=== PATIENT | female | born 1945 | race Caucasian/White ===

== ENCOUNTER 2022-06-10 15:54 | Emergency (ER) | payer MEDICARE, BC, SELFPAY ==
[2022-06-10 15:56] VITALS: BP 110/74; PULSE 90; RESP 18; TEMP 36.7; O2SAT 97; BMI 30.9
--- NOTE | 2022-06-10 16:44 | CRLHL7_ITS ---
For Patients: As a result of the Century Cures Act, medical imaging exams and procedure reports are released immediately into your electronic medical record. You may view this report before your referring provider. If you have questions, please contact your health care provider. INDICATION: Headache. Vomiting. TECHNIQUE: Noncontrast CT images acquired through the brain. COMPARISON: CT brain 07/14/2020. FINDINGS: Motion artifact degrades image quality near the skullbase. Prominence of the ventricles and sulci compatible with mild diffuse cerebral volume loss. No mass effect or midline shift. The cabello-white differentiation is maintained. No acute intracranial hemorrhage or pathologic extra-axial fluid collection. 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 Mild hypoattenuation within the subcortical white matter of the posterior right parietal and right occipital lobes has improved compared to the prior CT. Scattered hypoattenuation in the supratentorial white matter, suggestive of mild chronic microvascular ischemic changes. Intracranial atherosclerotic calcifications. Thinning of the ocular lenses. The calvarium is intact. Mqhy-gi-[id number] maxillary sinus mucosal thickening. Mild mucosal thickening ethmoid air cells. The mastoid air cells are clear. IMPRESSION: 1. No acute intracranial hemorrhage or mass effect. 2. Mild hypoattenuation within the subcortical white matter of the posterior right parietal and right occipital lobes has improved compared to the prior CT. 3. 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 Please note that all CT scans at this facility use dose modulation, iterative reconstruction, and/or weight-based dosing when appropriate to reduce radiation dose to as low as reasonably achievable. Dictated by Jose Dia MD @ 06/10/2022 5:52:47 PM (Electronically Signed)
--- NOTE | 2022-06-10 16:46 | ED.HA ---
HPI - Headache General Chief Complaint: Headache/Migraine Stated Complaint: Headache, Vomiting once an hour Time Seen by Provider: 06/10/22 16:00 History of Present Illness HPI Narrative: This 77-year-old female comes in reporting headache that she awoke with this morning beginning at about 6:00 a.m.. She has had vomiting about every hour since then also. She states that she does not typically get headaches but occasionally does. She states that this is the worst headache she has had. She does not report any neurologic deficits. She does not have any visual changes or light sensitivity. She does not report any symptoms of fever or infection. She does have some diffuse pain in her neck but not extending down her back. Related Data Home Medications Medication Instructions Recorded Confirmed hydroxychloroquine 200 mg tablet 200 mg PO BID 06/10/22 06/10/22 methotrexate sodium 2.5 mg tablet 2.5 mg PO DAILY 06/10/22 06/10/22 sulfasalazine 500 mg tablet 500 mg PO Q12H 06/10/22 06/10/22 Previous Rx's Medication Instructions Recorded sertraline 100 mg tablet 100 mg PO QDAY #14 tabs 05/20/22 ketorolac 10 mg tablet 10 mg PO TID 5 days #15 tabs 06/10/22 ondansetron 4 mg disintegrating 4 mg PO Q6H #10 tabs 06/10/22 tablet Allergies Allergy/AdvReac Type Severity Reaction Status Date / Time No Known Drug Allergies Allergy Verified 06/10/22 16:02 Review of Systems Status of ROS: Reports: 10 or more systems reviewed and unremarkable except as noted in History and below Narrative: Constitutional: No fevers, no weight gain or loss. Eyes: No discharge. No vision changes. HENT: No congestion, no sore throat, no ear pain. Cardiovascular: No chest pain, no palpitations. Respiratory: No shortness of breath, no wheezes, no cough. Gastrointestinal: No abdominal pain, no vomiting, no diarrhea. Genitourinary: No dysuria, no hematuria. Musculoskeletal: Normal range of motion. Skin: No rashes, no pruritis. Neurological: No dizziness, weakness, sensory change, speech change. Endo/Heme/Allergies: No bruising or bleeding. No polydipsia. Pysch: no suicidality, no anxiety, no insomnia. All other systems reviewed and are negative. PFSH PFSH Medical History (Updated 06/10/22 @ 18:52 by Alfonzo Pompa MD) Hypertension Social History Smoking Status: Never smoker Do you use any of these nicotine containing products: None How often do you have a drink containing alcohol: never How often do you have six or more drinks on one occasion: Never AUDIT-C Alcohol total score: 0 service: No Exam Narrative: Exam Narrative: Constitutional: Well-developed, well-nourished, no acute distress. HEENT: Normocephalic, atraumatic. Neck: Normal range of motion. Nontender. Supple. Heart: Regular. No murmurs. Normal rate. Intact distal pulses. Lungs: Clear to auscultation. No chest discomfort. No wheezes, rhonchi, or rales. Abdomen: Normal bowel sounds. Nontender. No rebound tenderness. Genitalia: Deferred. Back: No midline tenderness. Normal range of motion. Extremities: Normal range of motion. No injury. Skin: Intact. No rash. Warm. No erythema or pallor. Neurologic: No altered sensation. No weakness. Alert and oriented. No facial asymmetry. Tongue is midline. [id number] is normal. No pronator drift. [employer] [place] strength is equal bilaterally. Psychiatric: No suicidality. No anxiety or depression. No insomnia. Nursing notes and vitals signs are reviewed. Const: Vital Signs, click to edit/add: Vital Signs - 24 hr 06/10/22 15:56 06/10/22 18:21 Temperature 98.0 F Pulse Rate [Right Pulse Oximeter] 90 68 Respiratory Rate 18 18 Blood Pressure [Ri ght Upper Arm] 110/74 130/74 Pulse Oximetry 97 97 Oxygen Delivery Me thod Room Air Room Air Course Vital Signs Vital signs: Initial Vital Signs Temperature 98.0 F 06/10/22 15:56 Temperature Source Temporal Artery Scan 06/10/22 15:56 Pulse Rate 90 06/10/22 15:56 Respiratory Rate 18 06/10/22 15:56 Blood Pressure 110/74 06/10/22 15:56 Blood Pressure Mean 86 06/10/22 15:56 Blood Pressure Position Sitting 06/10/22 15:56 Pulse Oximetry 97 06/10/22 15:56 Oxygen Delivery Method 06/10/22 15:56 Vital Signs Temperature 98.0 F 06/10/22 15:56 Pulse Rate 90 06/10/22 15:56 Respiratory Rate 18 06/10/22 15:56 Blood Pressure 110/74 06/10/22 15:56 Pulse Oximetry 97 06/10/22 15:56 Oxygen Delivery Method 06/10/22 15:56 Temperature 98.0 F 06/10/22 15:56 Pulse Rate 68 06/10/22 18:21 Respiratory Rate 18 06/10/22 18:21 Blood Pressure 130/74 06/10/22 18:21 Pulse Oximetry 97 06/10/22 18:21 Oxygen Delivery Method 06/10/22 18:21 MDM - Headache MDM Narrative Medical decision making narrative: This patient comes in with headache and repeated vomiting. Given her age and the severity of her headache with vomiting I did do a CT scan which returns with no acute findings. Lab results also returned with reassuring findings. An IV was established where she received medications to treat her symptoms including Zofran 4 mg, Dilaudid 0.2 mg, and Toradol 15 mg. This brought sufficient relief to her symptoms. She maintains normal vital signs and neurologic function. She is okay to go home and is provided prescriptions for Toradol, Zofran, and [place]. Lab Data Labs: Lab Results 06/10/22 06/10/22 Range/Units 17:10 17:10 WBC 6.35 (4.50-11.00) K/uL RBC 3.79 L (4.00-5.20) m/uL Hgb 12.6 (12.0-16.0) gm/dL Hct 38.1 (33.0-51.0) % MCV 101 H (80-100) fL MCH 33 (26-34) pg MCHC 33 (32-36) gm/dL RDW Coeff of Nicole 11.9 (11.5-15.5) % Plt Count 310 (140-440) K/uL Neut % (Auto) 80.6 H (42.0-72.0) % Lymph % (Auto) 15.0 L (20-44) % [place] % (Auto) 3.9 (0.0-11.0) % Eos % (Auto) 0.0 (0.0-7.0) % Baso % (Auto) 0.3 (0.0-3.0) % Neut # (Auto) 5.10 (1.7-7.0) K/uL Lymph # (Auto) 1.00 (0.90-2.90) K/uL [place] # (Auto) 0.20 (0.00-0.90) K/UL Eos # (Auto) 0.00 (0.00-0.50) K/uL Baso # (Auto) 0.02 (0.00-0.30) K/uL Sodium 132 L (135-149) mmol/L Potassium 3.8 (3.6-5.1) mmol/L Chloride 98 (96-114) mmol/L Carbon Dioxide 25 (20-32) mmol/L BUN 13 (7-30) mg/dL Creatinine 0.4 L (0.5-1.5) mg/dL Estimated Creat Clear 46.54 Estimated GFR 103 ml/min Glucose 123 H (60-115) mg/dL Calcium 9.4 (8.4-10.6) mg/dL Imaging Data CT scan - head: Radiologist's impression: 1. No acute intracranial hemorrhage or mass effect. 2. Mild hypoattenuation within the subcortical white matter of the posterior right parietal and right occipital lobes has improved compared to the prior CT. 3. 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 Discharge Plan Discharge Clinical Impression: Migraine Patient Disposition: Home w/ Parent or Adult Condition: Stable Additional Instructions: Take medication as needed and indicated. Follow up with MD or return if worsening. Prescriptions: New ketorolac 10 mg tablet 10 mg PO TID 5 Days Qty: 15 0RF ondansetron 4 mg tablet,disintegrating 4 mg PO Q6H Qty: 10 0RF No Action methotrexate sodium 2.5 mg tablet 2.5 mg PO DAILY hydroxychloroquine 200 mg tablet 200 mg PO BID sulfasalazine 500 mg tablet 500 mg PO Q12H sertraline 100 mg tablet 100 mg PO QDAY Qty: 14 0RF Follow Up/Referrals: Peggy Styles MD [Primary Care Provider] - Stand Alone Forms: [employer] Info Instructions
[2022-06-10] MEDS: HYDROmorphone 0.5 mg/0.5 ml inj 0.2 MG IVP ×2 (17:10→18:12)
[2022-06-10 17:31] LABS: Basophils Absolute Auto 0.02 K/uL (0.00-0.30); Basophils Percent Auto 0.3 % (0.0-3.0); Hematocrit 38.1 % (33.0-51.0); Hemoglobin* 12.6 gm/dL (12.0-16.0); Immature Granulocytes Abs Auto 0.01 K/uL (0.00-0.30); Immature Granulocytes Pct Auto 0.2 %; Mean Corpuscular HGB Conc 33 gm/dL (32-36); Mean Corpuscular Hemoglobin 33 pg (26-34); Mean Corpuscular Volume 101 fL (80-100); Monocytes Percent Auto 3.9 % (0.0-11.0); Neutrophils Percent Auto 80.6 % (42.0-72.0); Platelet Count* 310 K/uL (140-440); RDW Coefficient of Variation % 11.9 % (11.5-15.5); Red Blood Count 3.79 m/uL (4.00-5.20); White Blood Count* 6.35 K/uL (4.50-11.00)
[2022-06-10 17:33] LABS: Chloride* 98 mmol/L (96-114); Potassium* 3.8 mmol/L (3.6-5.1); Sodium* 132 mmol/L (135-149)
[2022-06-10 17:35] LABS: Creatinine* 0.4 mg/dL (0.5-1.5); Est. Creatinine Clearance* 46.54; Estimated Glomerular Filt Rate 103 ml/min
[2022-06-10 17:36] LABS: Blood Urea Nitrogen* 13 mg/dL (7-30); Calcium* 9.4 mg/dL (8.4-10.6); Carbon Dioxide* 25 mmol/L (20-32); Glucose* 123 mg/dL (60-115); Slide Review Reflex No
[2022-06-10] MEDS: ONDANSETRON 2 MG/ML inj 4 MG IVP (18:11)
[2022-06-10] MEDS: diphenhydrAMINE 50 MG/ML inj 25 MG IVP (18:12)
[2022-06-10 18:21] VITALS: BP 130/74; PULSE 68; RESP 18; O2SAT 97
== END 2022-06-10 19:10 | disposition home or self-care (01) ==
PROVIDERS: Emergency Provider Emergency Medicine Emergency Medical Services; PCP Internal Medicine
DX: G43.909 Migraine, unspecified, not intractable, without status migrainosus (principal)
CPT/HCPCS: 36415; 70450; 80048; 85025; 96374; 96375; 96376; 99284; J1170; J1200; J2405

== ENCOUNTER 2022-06-23 15:11 | Outpatient (CLI) | payer MEDICARE, BC, SELFPAY ==
--- NOTE | 2022-06-23 15:30 | CRLHL7_ITS ---
For Patients: As a result of the Century Cures Act, medical imaging exams and procedure reports are released immediately into your electronic medical record. You may view this report before your referring provider. If you have questions, please contact your health care provider. Indication: Headaches, follow-up pituitary macroadenoma Technique: High-resolution sagittal and coronal, pre and postcontrast T1 weighted sequences through the pituitary gland, axial diffusion, T2 FLAIR sequences are provided. Fifteen gadolinium based IV contrast was administered. Comparison: CT head 06/10/2022, MRI brain 07/14/2021 Findings: The ventricles and cortical sulci are mildly prominent. No midline shift, hydrocephalus, herniation. No suspicious restricted diffusion, acute intracranial hemorrhage, or abnormal extra-axial fluid collection. Small areas of encephalomalacia and gliosis are noted at the left frontal and right parietal convexities. There are numerous scattered foci of FLAIR hyperintensity throughout the supratentorial white matter and ronda, along with extensive chronic microhemorrhage throughout the bilateral cerebral hemispheres. Redemonstration of a hypoenhancing lesion within the right aspect of the sella. In the coronal plane, this measures approximately 1.4 x 1.0 cm CC by TR (series 14 image 10), and approximately 1.4 cm AP in the axial plane (series 16 image 14). Differences in size relative to the prior exams is favored secondary to dedicated pituitary technique on today`s imaging, and this lesion is favored stable over the interval. Again noted is right lateral extension of this lesion to the level of the intercarotid line, suspicious for possible cavernous sinus invasion. No mass effect on the optic chiasm. The major intracranial flow voids are preserved. Mild maxillary and ethmoid sinus mucosal thickening. Trace right mastoid effusion. Bilateral lens implants. Impression: 1. Allowing for differences in technique, similar size/configuration of the 1.4 cm hypoenhancing lesion expanding the right aspect of the sella, most consistent with pituitary macroadenoma. Again noted is possible invasion of the right cavernous sinus. No mass effect on the optic chiasm. 2. No acute intracranial abnormality. Generalized cerebral volume loss, mild chronic microangiopathy white-matter changes, and sequela of cerebral amyloid angiopathy including innumerable cerebral chronic microhemorrhages. Dictated by Alicia Mackenzie MD @ 06/24/2022 10:41:05 AM (Electronically Signed)
== END 2022-06-23 15:12 | disposition home or self-care (01) ==
LOC: MRI 15:15
PROVIDERS: PCP Internal Medicine; Visit Provider Internal Medicine Endocrinology, Diabetes & Metabolism
DX: R51.9 Headache, unspecified (principal); E23.7 Disorder of pituitary gland, unspecified
CPT/HCPCS: 70553; A9575

== ENCOUNTER 2023-07-19 09:24 | Outpatient (CLI) | payer MEDICARE, BC, SELFPAY ==
--- OUTSIDE RECORDS SUMMARY | 2023-07-19 11:44 | XMS_ITS | Clinical Summary ---
Author Name Unknown Organization [facility] Address [place], [place] [address] Care Team Providers Care Muffler Tender Name Role Phone Peggy Styles MD Primary Care Provider [phone] Allergies Active Allergy Reactions Criticality Noted Date Comments Pollen Extracts Runny Nose 10/22/2014 Trees,cats Medications Medication Sig Dispensed Refills Start Date End Date Status ALBUTEROL SULFATE HFA 90 MCG/ACTUATION AEROSOL INHALERIndications:Br onchitis, not specified as acute or chronic,Acute bronchospasm inhale 1-2 puffs by inhalation route every 4-6 hours as needed 1 0 10/22/2007 Active SERTRALINE 100 MG TAB take 1/2 tablet daily 45 0 06/20/2008 Active METHOTREXATE SODIUM (METHOTREXATE, ANTI-RHEUMATIC, ORAL) Take by mouth. 0 Active hydroxychloroquine (PLAQUENIL) 200 mg tablet Take 200 mg by mouth 2 times daily. 0 Active predniSONE (DELTASONE) 5 mg tablet Take 5 mg by mouth once daily with a meal. 0 Active Cholecalciferol, Vitamin D3, (VITAMIN D-3) 2,000 unit tablet Take 2,000 Units by mouth once daily. 0 Active MULTIVITAMIN ORAL Take by mouth. 0 Act reji sulfaSALAzine (AZULFIDINE) 500 mg tablet 0 11/19/2021 Active CPAPIndications:ISA on CPAP CPAP machine for home use at pressure 11.6 cmw, full face mask x1/3month with a full face cushion x1/mo 1 Each 11 12/22/2021 Active cabergoline (DOSTINEX) 0.5 mg tablet 0 11/14/2021 Active Active Problems Problem Noted Date Diagnosed Date Rheumatoid arthritis 12/22/2021 Adenomatous colon polyp 01/01/2017 Overview: Colonoscopy 12/2016 polyp repeat in 5 years ISA 04/16/2006 AHI-45 10/12/2016 Dysthymic disorder 04/18/2007 Allergic rhinitis, cause unspecified 04/18/2007 Other and unspecified ovarian cyst 04/18/2007 Social History Tobacco Use Types Packs/Day Years Used Date Smoking Tobacco: Never Smokeless Tobacco: Never Tobacco Cessation:Counseling Given: Yes Comments:never Alcohol Use Standard Drinks/Week Comments No 0 (1 standard drink = 0.6 oz pur e alcohol) Social Connections Answer Date Recorded Frequency of Communication with Friends and Fami ly Not on file 12/22/2021 Sex and Gender Information Value Date Recorded Sex Assigned at Not on file Gender Identity Not on file Sexual Orientation Not on file Obstetrics History Last Filed Vital Signs Vital Sign Reading Time Taken Comments Blood Pressure 119/58 02/18/2022 8:04 AM CDT Pulse 90 02/18/2022 8:04 AM CDT Temperature 36.8 ??C (98.3 ??F) 08/28/2017 9:13 AM CD T Respiratory Rate 16 02/08/2015 11:52 AM CDT Oxygen Saturation 96% 02/18/2022 8:04 AM CDT Inhaled Oxygen Concentration - - Weight 92.3 kg (203 lb 6.4 oz) 02/18/2022 8:04 A M CDT Height 172.7 cm (5' 8) 10/24/2014 9:05 AM CDT Body Mass Index 30.93 10/24/2014 9:05 AM CDT Plan of Treatment Health Maintenance Due Date Last Done Comments Tdap 1957 Depression screening for age 12+ 1958 BMI (ht and wt on same day) for age 18+ 01/06/1964 Hepatitis C screening for age 18-79 01/06/1964 Tetanus booster 1966 Zoster (shingles) series for age 50+ (1 of 2) 01/06/1996 DEXA/DXA scan for age 65+ 2011 Medicare Wellness for age 65+ 2011 Pneumococcal series for age 65+ (1 of 1 - PCV) 2011 COVID-19 vaccine series ( season) 2023 06/24/2021, 08/24/2020, 08/03/2020 Influenza for age 65+ 02/05/2023 Medical Devices Implanted Type Area Group President Device Identifier Shelf Expiration Date Model / Serial / Lot Plate Low Profile Mtp Lt Sht Contoured Titnm - [id number] Implanted:Qty: 1 on 10/24/2014 by Bill Chan DPM at [facility] Left: Foot [employer] [id number] L-P # / / Description:Load #1 6 2014-20 - [id number] Implanted:Qty: 1 on 10/24/2014 by Bill Chan DPM at [facility] Left: Foot [employer] AR-8933- 20 / / Description:3mm low profile screw titanium cortical 20mm #[id number] load#1 6 10/23/2014 Screw Joselito Low Profile 3.0x18mm Titnm - [id number] Implanted:Qty: 1 on 10/24/2014 at [facility] [employer] AR-8933-18# / / [id number] - [id number] Implanted:Qty: 2 on 10/24/2014 by Bill Chan DPM at [facility] Left: Foot [employer] AR-8933V -12 / / Description:3.0mm libertad screws titanium arthrex #[id number] load 1 6 10/23/2014AugJbp-8105z-52 - [id number] Implanted:Qty: 1 on 10/24/2014 by Bill Chan DPM at [facility] Left: Foot [employer] AR-8933V -18 / / Description:3.0 mm libertad screw s titanium 18mm #[id number] load #1 6 10/23/2014AugByp-2198n-26 - [id number] Implanted:Qty: 1 on 10/24/2014 by Bill Chan DPM at [facility] Left: Foot [employer] AR-8933V -20 / / Description:3.0mmval screw # [id number] Load#1 6 10/23/2014 Screw Joselito Low Profile 3.0x16mm Titnm - [id number] Implanted:Qty: 1 on 10/24/2014 by Bill Chan DPM at [facility] Left: Foot [employer] AR-8933- 16# / / Description:Load # 1 6 10/23 Advance Directives Latest Code Status on File Code Status Date Activated Date Inactivated Comments Full Code 10/22/2014 12:49 PM 10/24/2014 5:33 PM Care Teams Muffler Tender Relationship Specialty Start Date End Date Peggy Styles MD [address] [place] [address] PCP - General Internal Medicine 10/23/14
--- OUTSIDE RECORDS SUMMARY | 2023-07-19 11:44 | XMS_ITS | Continuity of Care Document ---
Author Name Unknown Organization [facility] Address [address] [place] [address] Phone Care Team Providers Care Pit Steward Name Role Phone Aaron Ballard MD Unavailable Unavailable Allergies, Adverse Reactions, Alerts Substance Reaction Status Criticality No Known Allergies Active No Inform ation Medications Medication Instructions Dosage Effective Dates (start - stop) Status Comments HYDROXYCHLOROQUINE SULFATE 200 TABS TAKE ONE TABLET BY MOUTH TWICE A DAY - Active SULFASALAZINE 500MG TABS TAKE TWO TABLET S (1,000 MG TOTAL) BY MOUTH TWICE A DAY AFTER MEALS 1000 MG - Active METHOTREXATE 2.5MG TABS TAKE 10 TABLETS (25 MG TOTAL) BY MOUTH ONCE EVERY WEEK 25 MG - Active folic acid 1 mg tablet take 1 tablet by oral route every morning 1 MG - Active Remicade 100 mg intravenous solution infuse - Active cabergoline 0.5 mg tablet take 0.5 Tablet by oral route 2 times every week 0.25 MG - Active Vitamin D3 2,000 unit tablet take 2 Tablet by Oral route every day 2 Tablet - Active Zoloft 50 mg Tab take 1 tablet (50MG) by oral route every day 50 MG - Active HYDROXYCHLOROQUINE SULFATE 200 TABS TAKE ONE TABLET BY MOUTH TWICE A DAY - No Longer Active Procedures Procedure Date Remicade Infliximab Chemo, Iv Infusion, 1 Hr Chemo, Iv Infusion, Addl Hr Normal Saline Solution Infus Remicade Infliximab Chemo, Iv Infusion, 1 Hr Chemo, Iv Infusion, Addl Hr Normal Saline Solution Infus Office/Outpatient Visit, Est Routine Venipuncture Specimen Handling Rbc Sed Rate, Automated Assay Of Serum Albumin Assay Of Creatinine Transferase (Ast) (Sgot) Alanine Amino (Alt) (Sgpt) CReactive Protein Tb Test, Cell Immun Measure Complete Cbc WAuto Diff Wbc Remicade Infliximab Chemo, Iv Infusion, 1 Hr Chemo, Iv Infusion, Addl Hr Normal Saline Solution Infus Remicade Infliximab Chemo, Iv Infusion, 1 Hr Chemo, Iv Infusion, Addl Hr Normal Saline Solution Infus Office/Outpatient Visit, Est Routine Venipuncture Rbc Sed Rate, Automated Assay Of Serum Albumin Assay Of Creatinine Transferase (Ast) (Sgot) Alanine Amino (Alt) (Sgpt) CReactive Protein Complete Cbc WAuto Diff Wbc Remicade Infliximab Chemo, Iv Infusion, 1 Hr Chemo, Iv Infusion, Addl Hr Normal Saline Solution Infus Remicade Infliximab Chemo, Iv Infusion, 1 Hr Chemo, Iv Infusion, Addl Hr Normal Saline Solution Infus Office/Outpatient Visit, Est Routine Venipuncture Rbc Sed Rate, Nonautomated Assay Of Serum Albumin Assay Of Creatinine Transferase (Ast) (Sgot) Alanine Amino (Alt) (Sgpt) CReactive Protein Complete Cbc WAuto Diff Wbc Remicade Infliximab Chemo, Iv Infusion, 1 Hr Chemo, Iv Infusion, Addl Hr Normal Saline Solution Infus Remicade Infliximab Chemo, Iv Infusion, 1 Hr Chemo, Iv Infusion, Addl Hr Normal Saline Solution Infus Office/Outpatient Visit, Est Routine Venipuncture Rbc Sed Rate, Nonautomated Assay Of Serum Albumin Assay Of Creatinine Transferase (Ast) (Sgot) Alanine Amino (Alt) (Sgpt) CReactive Protein Complete Cbc WAuto Diff Wbc Remicade Infliximab Chemo, Iv Infusion, 1 Hr Chemo, Iv Infusion, Addl Hr Normal Saline Solution Infus Remicade Infliximab Chemo, Iv Infusion, 1 Hr Chemo, Iv Infusion, Addl Hr Normal Saline Solution Infus Remicade Infliximab Chemo, Iv Infusion, 1 Hr Chemo, Iv Infusion, Addl Hr Normal Saline Solution Infus Office/Outpatient Visit, Est Routine Venipuncture Rbc Sed Rate, Nonautomated Assay Of Serum Albumin Assay Of Creatinine Transferase (Ast) (Sgot) Alanine Amino (Alt) (Sgpt) CReactive Protein Complete Cbc, Automated Remicade Infliximab Chemo, Iv Infusion, 1 Hr Chemo, Iv Infusion, Addl Hr Normal Saline Solution Infus Office/Outpatient Visit, Est Routine Venipuncture Rbc Sed Rate, Nonautomated Assay Of Serum Albumin Assay Of Creatinine Transferase (Ast) (Sgot) Alanine Amino (Alt) (Sgpt) CReactive Protein Complete Cbc, Automated Remicade Infliximab Chemo, Iv Infusion, 1 Hr Chemo, Iv Infusion, Addl Hr Normal Saline Solution Infus Remicade Infliximab Chemo, Iv Infusion, 1 Hr Chemo, Iv Infusion, Addl Hr Normal Saline Solution Infus Office/Outpatient Visit, Est Routine Venipuncture Rbc Sed Rate, Nonautomated Assay Of Serum Albumin Assay Of Creatinine Transferase (Ast) (Sgot) Alanine Amino (Alt) (Sgpt) CReactive Protein Complete Cbc WAuto Diff Wbc Remicade Infliximab Chemo, Iv Infusion, 1 Hr Chemo, Iv Infusion, Addl Hr Normal Saline Solution Infus Office/Outpatient Visit, Est Routine Venipuncture Rbc Sed Rate, Nonautomated Assay Of Serum Albumin Assay Of Creatinine Transferase (Ast) (Sgot) Alanine Amino (Alt) (Sgpt) CReactive Protein Complete Cbc, Automated Remicade Infliximab Chemo, Iv Infusion, 1 Hr Chemo, Iv Infusion, Addl Hr Normal Saline Solution Infus Remicade Infliximab Chemo, Iv Infusion, 1 Hr Chemo, Iv Infusion, Addl Hr Normal Saline Solution Infus Office/Outpatient Visit, Est Routine Venipuncture Rbc Sed Rate, Nonautomated Assay Of Serum Albumin Assay Of Creatinine Transferase (Ast) (Sgot) Alanine Amino (Alt) (Sgpt) CReactive Protein Complete Cbc WAuto Diff Wbc Remicade Infliximab Chemo, Iv Infusion, 1 Hr Chemo, Iv Infusion, Addl Hr Normal Saline Solution Infus Remicade Infliximab Chemo, Iv Infusion, 1 Hr Chemo, Iv Infusion, Addl Hr Normal Saline Solution Infus Remicade Infliximab Chemo, Iv Infusion, 1 Hr Chemo, Iv Infusion, Addl Hr Normal Saline Solution Infus Office/Outpatient Visit, Est Routine Venipuncture Rbc Sed Rate, Nonautomated Assay Of Serum Albumin Assay Of Creatinine Transferase (Ast) (Sgot) Alanine Amino (Alt) (Sgpt) CReactive Protein Complete Cbc WAuto Diff Wbc Remicade Infliximab Chemo, Iv Infusion, 1 Hr Chemo, Iv Infusion, Addl Hr Normal Saline Solution Infus Remicade Infliximab Chemo, Iv Infusion, 1 Hr Chemo, Iv Infusion, Addl Hr Normal Saline Solution Infus Office/Outpatient Visit, Est Routine Venipuncture Rbc Sed Rate, Nonautomated Assay Of Serum Albumin Assay Of Creatinine Transferase (Ast) (Sgot) Alanine Amino (Alt) (Sgpt) CReactive Protein Complete Cbc WAuto Diff Wbc Remicade Infliximab Chemo, Iv Infusion, 1 Hr Normal Saline Solution Infus Chemo, Iv Infusion, Addl Hr Office/Outpatient Visit, Est Routine Venipuncture Rbc Sed Rate, Nonautomated Assay Of Serum Albumin Assay Of Creatinine Transferase (Ast) (Sgot) Alanine Amino (Alt) (Sgpt) CReactive Protein Complete Cbc WAuto Diff Wbc Remicade Infliximab Chemo, Iv Infusion, 1 Hr Chemo, Iv Infusion, Addl Hr Normal Saline Solution Infus Office/Outpatient Visit, Est Routine Venipuncture Specimen Handling Rbc Sed Rate, Nonautomated Assay Of Serum Albumin Assay Of Creatinine Transferase (Ast) (Sgot) Alanine Amino (Alt) (Sgpt) CReactive Protein Tb Test, Cell Immun Measure Complete Cbc, Automated Remicade Infliximab Chemo, Iv Infusion, 1 Hr Chemo, Iv Infusion, Addl Hr Normal Saline Solution Infus Remicade Infliximab Chemo, Iv Infusion, 1 Hr Chemo, Iv Infusion, Addl Hr Normal Saline Solution Infus Office/Outpatient Visit, Est Routine Venipuncture Rbc Sed Rate, Nonautomated Assay Of Serum Albumin Assay Of Creatinine Transferase (Ast) (Sgot) Alanine Amino (Alt) (Sgpt) CReactive Protein Complete Cbc, Automated Remicade Infliximab Chemo, Iv Infusion, 1 Hr Chemo, Iv Infusion, Addl Hr Normal Saline Solution Infus Office/Outpatient Visit, Est Routine Venipuncture Rbc Sed Rate, Nonautomated Assay Of Serum Albumin Assay Of Creatinine Transferase (Ast) (Sgot) Alanine Amino (Alt) (Sgpt) CReactive Protein Complete Cbc, Automated Sent Home By Infusion Staff Remicade Infliximab Chemo, Iv Infusion, 1 Hr Chemo, Iv Infusion, Addl Hr Normal Saline Solution Infus Office/Outpatient Visit, Est Routine Venipuncture Rbc Sed Rate, Nonautomated Assay Of Serum Albumin Assay Of Creatinine Transferase (Ast) (Sgot) Alanine Amino (Alt) (Sgpt) CReactive Protein Complete Cbc, Automated Remicade Infliximab Chemo, Iv Infusion, 1 Hr Chemo, Iv Infusion, Addl Hr Normal Saline Solution Infus Remicade Infliximab Chemo, Iv Infusion, 1 Hr Chemo, Iv Infusion, Addl Hr Normal Saline Solution Infus Office/Outpatient Visit, Est Routine Venipuncture Rbc Sed Rate, Nonautomated Assay Of Serum Albumin Assay Of Creatinine Transferase (Ast) (Sgot) Alanine Amino (Alt) (Sgpt) CReactive Protein Complete Cbc, Automated Remicade Infliximab Chemo, Iv Infusion, 1 Hr Chemo, Iv Infusion, Addl Hr Normal Saline Solution Infus Office/Outpatient Visit, Est Routine Venipuncture Rbc Sed Rate, Nonautomated Assay Of Serum Albumin Assay Of Creatinine Transferase (Ast) (Sgot) Alanine Amino (Alt) (Sgpt) CReactive Protein Complete Cbc, Automated Remicade Infliximab Chemo, Iv Infusion, 1 Hr Chemo, Iv Infusion, Addl Hr Normal Saline Solution Infus Remicade Infliximab Chemo, Iv Infusion, 1 Hr Chemo, Iv Infusion, Addl Hr Normal Saline Solution Infus Office/Outpatient Visit, Est Routine Venipuncture Specimen Handling Assay Of Serum Albumin Assay Of Creatinine Transferase (Ast) (Sgot) Alanine Amino (Alt) (Sgpt) Complete Cbc, Automated Vitamin D 25 Hydroxy Remicade Infliximab Chemo, Iv Infusion, 1 Hr Chemo, Iv Infusion, Addl Hr Normal Saline Solution Infus Remicade Infliximab Chemo, Iv Infusion, 1 Hr Chemo, Iv Infusion, Addl Hr Normal Saline Solution Infus Office/Outpatient Visit, Est Routine Venipuncture Complete Cbc, Automated Assay Of Serum Albumin Assay Of Creatinine Transferase (Ast) (Sgot) Alanine Amino (Alt) (Sgpt) Dxa Bone Density, Axial Remicade Infliximab Chemo, Iv Infusion, 1 Hr Chemo, Iv Infusion, Addl Hr Normal Saline Solution Infus Remicade Infliximab Chemo, Iv Infusion, 1 Hr Chemo, Iv Infusion, Addl Hr Normal Saline Solution Infus Remicade Infliximab Chemo, Iv Infusion, 1 Hr Chemo, Iv Infusion, Addl Hr Normal Saline Solution Infus Complete Cbc, Automated Routine Venipuncture Rbc Sed Rate, Nonautomated Assay Of Serum Albumin Assay Of Creatinine Transferase (Ast) (Sgot) Alanine Amino (Alt) (Sgpt) Office/Outpatient Visit, Est Remicade Infliximab Chemo, Iv Infusion, 1 Hr Chemo, Iv Infusion, Addl Hr Normal Saline Solution Infus Sent Home By Infusion Staff Office/Outpatient Visit, Est Routine Venipuncture Rbc Sed Rate, Nonautomated Assay Of Serum Albumin Assay Of Creatinine Transferase (Ast) (Sgot) Alanine Amino (Alt) (Sgpt) CReactive Protein Complete Cbc, Automated Remicade Infliximab Chemo, Iv Infusion, 1 Hr Chemo, Iv Infusion, Addl Hr Normal Saline Solution Infus Remicade Infliximab Chemo, Iv Infusion, 1 Hr Chemo, Iv Infusion, Addl Hr Normal Saline Solution Infus Office/Outpatient Visit, Est Routine Venipuncture Rbc Sed Rate, Nonautomated Assay Of Serum Albumin Assay Of Creatinine Transferase (Ast) (Sgot) Alanine Amino (Alt) (Sgpt) CReactive Protein Complete Cbc, Automated Office/Outpatient Visit, Est Routine Venipuncture Specimen Handling Complete Cbc WAuto Diff Wbc Rbc Sed Rate, Nonautomated Assay Of Serum Albumin Assay Of Creatinine Transferase (Ast) (Sgot) Alanine Amino (Alt) (Sgpt) CReactive Protein Tb Test, Cell Immun Measure Office/Outpatient Visit, Est Routine Venipuncture Complete Cbc WAuto Diff Wbc Rbc Sed Rate, Nonautomated CReactive Protein Assay Of Serum Albumin Assay Of Creatinine Transferase (Ast) (Sgot) Alanine Amino (Alt) (Sgpt) Office/Outpatient Visit, Est Routine Venipuncture Complete Cbc WAuto Diff Wbc Rbc Sed Rate, Nonautomated CReactive Protein Assay Of Serum Albumin Assay Of Creatinine Transferase (Ast) (Sgot) Alanine Amino (Alt) (Sgpt) Office/Outpatient Visit, Est Routine Venipuncture Specimen Handling Complete Cbc WAuto Diff Wbc Rbc Sed Rate, Nonautomated CReactive Protein Assay Of Serum Albumin Assay Of Creatinine Transferase (Ast) (Sgot) Alanine Amino (Alt) (Sgpt) Office/Outpatient Visit, Est Routine Venipuncture Complete Cbc WAuto Diff Wbc Rbc Sed Rate, Nonautomated CReactive Protein Assay Of Serum Albumin Assay Of Creatinine Transferase (Ast) (Sgot) Alanine Amino (Alt) (Sgpt) Office/Outpatient Visit, Est Routine Venipuncture Complete Cbc WAuto Diff Wbc Assay Of Serum Albumin Assay Of Creatinine Transferase (Ast) (Sgot) Alanine Amino (Alt) (Sgpt) Office/Outpatient Visit, Est Routine Venipuncture Complete Cbc WAuto Diff Wbc Assay Of Serum Albumin Assay Of Creatinine Transferase (Ast) (Sgot) Alanine Amino (Alt) (Sgpt) Office/Outpatient Visit, Est Routine Venipuncture Complete Cbc WAuto Diff Wbc Assay Of Serum Albumin Assay Of Creatinine Transferase (Ast) (Sgot) Alanine Amino (Alt) (Sgpt) Dxa Bone Density, Axial Office/Outpatient Visit, Est Routine Venipuncture Complete Cbc WAuto Diff Wbc Rbc Sed Rate, Nonautomated Assay Of Serum Albumin Assay Of Creatinine Transferase (Ast) (Sgot) Alanine Amino (Alt) (Sgpt) Office/Outpatient Visit, Est Anti Rheum Drugthxpyrx'D/Gvn Routine Venipuncture Complete Cbc WAuto Diff Wbc Assay Of Serum Albumin Assay Of Creatinine Transferase Ast Sgot Alanine Amino Alt Sgpt Office/Outpatient Visit, Est Anti Rheum Drugthxpyrx'D/Gvn Routine Venipuncture Complete Cbc WAuto Diff Wbc Assay Of Serum Albumin Assay Of Creatinine Transferase Ast Sgot Alanine Amino Alt Sgpt Routine Venipuncture Complete Cbc WAuto Diff Wbc Assay Of Serum Albumin Assay Of Creatinine Transferase Ast Sgot Alanine Amino Alt Sgpt Office/Outpatient Visit, Est Anti Rheum Drugthxpyrx'D/Gvn Routine Venipuncture CReactive Protein Complete Cbc WAuto Diff Wbc Rbc Sed Rate, Nonautomated Assay Of Serum Albumin Assay Of Creatinine Transferase Ast Sgot Alanine Amino Alt Sgpt Office/Outpatient Visit, Est Routine Venipuncture CReactive Protein Complete Cbc WAuto Diff Wbc Rbc Sed Rate, Nonautomated Assay Of Serum Albumin Assay Of Creatinine Transferase Ast Sgot Alanine Amino Alt Sgpt Anti Rheum Drugthxpyrx'D/Gvn Osteoarth Functn Assessment Advance Directives Directive Yes / No Effective Date File Name No Information Encounters Encounter Description Practice Location Reason(s) For Visit Diagnoses Date Provider Providers Copied on Encounter [facility] , [address], [place], [address], [place] tel:[phone] [facility] , No Information 3 Nellie Walker. [facility] [address], [place], [address], [place]. tel:[phone] [facility] , [address], [place], [address], [place] tel:[phone] [facility] , No Information 3 Nellie Walker. [facility] [address], [place], [address], [place]. tel:[phone] [facility] , [address], [place], [address], [place] tel:[phone] [facility] , No Information 3 Nellie Walker. [facility] [address], [place], [address], [place]. tel:[phone] [facility] , [address], [place], [address], [place] tel:[phone] [facility] , No Information 3 Nellie Walker. [facility] [address], [place], [address], [place]. tel:[phone] Referring Provider: Aaron Barragan, [facility] [address], [place], [address]. tel:[phone] [facility] , [address], [place], [address], [place] tel:[phone] [facility] , No Information 3 Nellie Walker. [facility] [address], [place], [address], [place]. tel:[phone] [facility] , [address], [place], [address], [place] tel:[phone] [facility] , No Information 3 Kam Alvarado. [facility] [address], [place], [address], [place]. tel:[phone] Referring Provider: Jenny Pond, [facility] [address], [place], [address]. tel:[phone] [facility] , [address], [place], [address], [place] tel:[phone] [facility] , No Information 3 Nellie Walker. [facility] [address], [place], [address], [place]. tel:[phone] Office/Outpa tient Visit, Est [facility] , [address], [place], [address], [place] tel:[phone] [facility] , Rheumatoid arthritis (chief complaint) LeukopeniaVi tamin D deficiencySe ronegative RAElevated liver enzymesBone healthCounse lingHigh risk medication monitoringBu rsitis of unspecified shoulder 3 Nellie Walker. [facility] [address], [place], [address], [place]. tel:[phone] Referring Provider: Aaron Barragan, [facility] [address], [place], [address]. tel:[phone] [facility] , [address], [place], [address], [place] tel:[phone] [facility] , No Information 3 Nellie Walker. [facility] [address], [place], [address], [place]. tel:[phone] Referring Provider: Aaron Barragan, [facility] [address], [place], [address]. tel:[phone] [facility] , [address], [place], [address], [place] tel:[phone] [facility] , No Information 3 Nellie Walker. [facility] [address], [place], [address], [place]. tel:[phone] Referring Provider: Aaron Barragan, [facility] [address], [place], [address]. tel:[phone] Office/Outpa tient Visit, Est [facility] , [address], [place], [address], [place] tel:[phone] [facility] , Rheumatoid arthritis (chief complaint) LeukopeniaVi tamin D deficiencySe ronegative RAElevated liver enzymesHonorhealth [facility] Cent[facility] lingHigh risk medication monitoring 3 Nellie Walker. [facility] [address], [place], [address], [place]. tel:[phone] Referring Provider: Aaron Barragan, [facility] [address], [place], [address]. tel:[phone] [facility] , [address], [place], [address], [place] tel:[phone] [facility] , No Information 3 Nellie Walker. [facility] [address], [place], [address], [place]. tel:[phone] Referring Provider: Aaron Barragan, [facility] [address], [place], [address]. tel:[phone] [facility] , [address], [place], [address], [place] tel:[phone] [facility] , No Information 2 Baldo Currie. [address], [place], [address], [place]. tel:[phone] Referring Provider: Rosey Pond, [address], [place], [address]. tel:[phone] Office/Outpa tient Visit, Est [facility] , [address], [place], [address], [place] tel:[phone] [facility] , Rheumatoid arthritis (chief complaint) LeukopeniaVi tamin D deficiencySe ronegative RAElevated liver enzymesCape Fear/Harnett Health lingHigh risk medication monitoring 2 Nellie Walker. [facility] [address], [place], [address], [place]. tel:[phone] Referring Provider: Aaron Barragan, [facility] [address], [place], [address]. tel:[phone] [facility] , [address], [place], [address], [place] tel:[phone] [facility] , No Information 2 Nellie Aaron. [facility] [address], [place], [address], [place]. tel:[phone] Referring Provider: Aaron Barragan, [facility] [address], [place], [address]. tel:[phone] [facility] , [address], [place], [address], [place] tel:[phone] [facility] , No Information 2 Nellie Aaron. [facility] [address], [place], [address], [place]. tel:[phone] Referring Provider: Aaron Barragan, [facility] [address], [place], [address]. tel:[phone] Office/Outpa tient Visit, Est [facility] , [address], [place], [address], [place] tel:[phone] [facility] , Rheumatoid arthritis (chief complaint) LeukopeniaVi tamin D deficiencySe ronegative RAElevated liver enzymesHonorhealth [facility] Cent[facility] lingHigh risk medication monitoringPa in in right foot 2 Nellie Aaron. [facility] [address], [place], [address], [place]. tel:[phone] Referring Provider: Aaron Barragan, [facility] [address], [place], [address]. tel:[phone] [facility] , [address], [place], [address], [place] tel:[phone] [facility] , No Information 2 Nellie Walker. [facility] [address], [place], [address], [place]. tel:[phone] Referring Provider: Aaron Barragan, [facility] [address], [place], [address]. tel:[phone] [facility] , [address], [place], [address], [place] tel:[phone] [facility] , No Information 2 Nellie Walker. [facility] [address], [place], [address], [place]. tel:[phone] Referring Provider: Aaron Barragan, [facility] [address], [place], [address]. tel:[phone] [facility] , [address], [place], [address], [place] tel:[phone] [facility] , No Information 2 Nellie Walker. [facility] [address], [place], [address], [place]. tel:[phone] Referring Provider: Aaron Barragan, [facility] [address], [place], [address]. tel:[phone] Office/Outpa tient Visit, Est [facility] , [address], [place], [address], [place] tel:[phone] [facility] , Rheumatoid arthritis (chief complaint) LeukopeniaVi tamin D deficiencySe ronegative RAElevated liver enzymesBone healthCocrownpoint health care facilitye lingHigh risk medication monitoring 2 Nellie Walker. [facility] [address], [place], [address], [place]. tel:[phone] Referring Provider: Aaron Barragan, [facility] [address], [place], [address]. tel:[phone] [facility] , [address], [place], [address], [place] tel:[phone] [facility] , No Information 2 Nellie Walker. [facility] [address], [place], [address], [place]. tel:[phone] Referring Provider: Aaron Barragan, [facility] [address], [place], [address]. tel:[phone] Office/Outpa tient Visit, Est [facility] , [address], [place], [address], [place] tel:[phone] [facility] , Rheumatoid arthritis (chief complaint) LeukopeniaVi tamin D deficiencySe ronegative RACounseling Elevated liver enzymesBone healthHigh risk medication monitoringBu rsitis of unspecified shoulder 1 Nellie Walker. [facility] [address], [place], [address], [place]. tel:[phone] Referring Provider: Aaron Barragan, [facility] [address], [place], [address]. tel:[phone] [facility] , [address], [place], [address], [place] tel:[phone] [facility] , No Information 1 Nellie Walker. [facility] [address], [place], [address], [place]. tel:[phone] Referring Provider: Aaron Barragan, [facility] [address], [place], [address]. tel:[phone] [facility] , [address], [place], [address], [place] tel:[phone] [facility] , No Information 1 Nellie Walker. [facility] [address], [place], [address], [place]. tel:[phone] Referring Provider: Aaron Barragan, [facility] [address], [place], [address]. tel:[phone] Office/Outpa tient Visit, Est [facility] , [address], [place], [address], [place] tel:[phone] [facility] , Rheumatoid arthritis (chief complaint) LeukopeniaVi tamin D deficiencySe ronegative RACounseling Elevated liver enzymesBone healthMon Health Medical Center risk medication monitoring 1 Nellie Walker. [facility] [address], [place], [address], [place]. tel:[phone] Referring Provider: Aaron Barragan, [facility] [address], [place], [address]. tel:[phone] [facility] , [address], [place], [address], [place] tel:[phone] [facility] , No Information 1 Nellie Walker. [facility] [address], [place], [address], [place]. tel:[phone] Referring Provider: Aaron Barragan, [facility] [address], [place], [address]. tel:[phone] Office/Outpa tient Visit, Est [facility] , [address], [place], [address], [place] tel:[phone] [facility] , Rheumatoid arthritis (chief complaint) LeukopeniaVi tamin D deficiencySe ronegative RACounseling Elevated liver enzymesBone [facility] risk medication monitoring Sep- 1 Nellie Walker. [facility] [address], [place], [address], [place]. tel:[phone] Referring Provider: Aaron Barragan, [facility] [address], [place], [address]. tel:[phone] [facility] , [address], [place], [address], [place] tel:[phone] [facility] , No Information 1 Nellie Walker. [facility] [address], [place], [address], [place]. tel:[phone] Referring Provider: Aaron Barragan, [facility] [address], [place], [address]. tel:[phone] [facility] , [address], [place], [address], [place] tel:[phone] [facility] , No Information Nellie Walker. [facility] [address], [place], [address], [place]. tel:[phone] Referring Provider: Aaron Barragan, [facility] [address], [place], [address]. tel:[phone] Office/Outpa tient Visit, Est [facility] , [address], [place], [address], [place] tel:[phone] [facility] , Rheumatoid arthritis (chief complaint) LeukopeniaVi tamin D deficiencySe ronegative RAElevated liver enzymesHonorhealth [facility]or[facility] Medical Centere [facility] risk medication monitoringCo unseling 1 Nellie Walker. [facility] [address], [place], [address], [place]. tel:[phone] Referring Provider: Aaron Barragan, [facility] [address], [place], [address]. tel:[phone] [facility] , [address], [place], [address], [place] tel:[phone] [facility] , No Information 0 Aletha Mckeon. [facility] [address], [place], [address], [place]. tel:[phone] Referring Provider: Mike Reese, [facility] [address], [place], [address]. tel:[phone] [facility] , [address], [place], [address], [place] tel:[phone] [facility] , No Information 0 Nellie Walker. [facility] [address], [place], [address], [place]. tel:[phone] Referring Provider: Aaron Barragan, [facility] [address], [place], [address]. tel:[phone] [facility] , [address], [place], [address], [place] tel:[phone] [facility] , No Information 0 Nellie Walker. [facility] [address], [place], [address], [place]. tel:[phone] Referring Provider: Aaron Barragan, [facility] [address], [place], [address]. tel:[phone] Office/Outpa tient Visit, Est [facility] , [address], [place], [address], [place] tel:[phone] [facility] , Rheumatoid arthritis (chief complaint) LeukopeniaVi tamin D deficiencySe ronegative RAElevated liver enzymesBone healthHigh risk medication monitoringPa in in right foot 0 Nellie Walker. [facility] [address], [place], [address], [place]. tel:[phone] Referring Provider: Aaron Barragan, [facility] [address], [place], [address]. tel:[phone] [facility] , [address], [place], [address], [place] tel:[phone] [facility] , No Information 0 Nellie Walker. [facility] [address], [place], [address], [place]. tel:[phone] Referring Provider: Aaron Barragan, [facility] [address], [place], [address]. tel:[phone] [facility] , [address], [place], [address], [place] tel:[phone] [facility] , No Information 0 Nellie Walker. [facility] [address], [place], [address], [place]. tel:[phone] Referring Provider: Aaron Barragan, [facility] [address], [place], [address]. tel:[phone] Office/Outpa tient Visit, Est [facility] , [address], [place], [address], [place] tel:[phone] [facility] , Rheumatoid arthritis (chief complaint) LeukopeniaVi tamin D deficiencySe ronegative RAElevated liver enzymesBone healthHigh risk medication monitoring 0 Nellie Walker. [facility] [address], [place], [address], [place]. tel:[phone] Referring Provider: Aaron Barragan, [facility] [address], [place], [address]. tel:[phone] [facility] , [address], [place], [address], [place] tel:[phone] [facility] , No Information 0 0 Nellie Walker. [facility] [address], [place], [address], [place]. tel:[phone] Referring Provider: Aaron Barragan, [facility] [address], [place], [address]. tel:[phone] Office/Outpa tient Visit, Est [facility] , [address], [place], [address], [place] tel:[phone] [facility] , Rheumatoid arthritis (chief complaint) LeukopeniaVi tamin D deficiencySe ronegative RAElevated liver enzymesBone healthHigh risk medication monitoringPa in in right foot 0 Nellie Walker. [facility] [address], [place], [address], [place]. tel:[phone] Referring Provider: Aaron Barragan, [facility] [address], [place], [address]. tel:[phone] [facility] , [address], [place], [address], [place] tel:[phone] [facility] , No Information Nellie Burnhamad. [facility] [address], [place], [address], [place]. tel:[phone] Referring Provider: Aaron Barragan, [facility] [address], [place], [address]. tel:[phone] Office/Outpa tient Visit, Est [facility] , [address], [place], [address], [place] tel:[phone] [facility] , Rheumatoid arthritis (chief complaint) LeukopeniaVi tamin D deficiencySe ronegative RAElevated liver enzymesBone healthMon Health Medical Center risk medication monitoring Nellie Burnhamad. [facility] [address], [place], [address], [place]. tel:[phone] Referring Provider: Aaron Barragan, [facility] [address], [place], [address]. tel:[phone] [facility] , [address], [place], [address], [place] tel:[phone] [facility] , No Information Nellie Aaron. [facility] [address], [place], [address], [place]. tel:[phone] Referring Provider: Aaron Barragan, [facility] [address], [place], [address]. tel:[phone] [facility] , [address], [place], [address], [place] tel:[phone] [facility] , No Information Nellie Aaron. [facility] [address], [place], [address], [place]. tel:[phone] Referring Provider: Aaron Barragan, [facility] [address], [place], [address]. tel:[phone] Office/Outpa tient Visit, Est [facility] , [address], [place], [address], [place] tel:[phone] [facility] , Rheumatoid arthritis (chief complaint) Vitamin D deficiencySe ronegative RAElevated liver enzymesBone [facility] monitoringCh[facility] Nellie Aaron. [facility] [address], [place], [address], [place]. tel:[phone] Referring Provider: Aaron Barragan, [facility] [address], [place], [address]. tel:[phone] [facility] , [address], [place], [address], [place] tel:[phone] [facility] , No Information Nellie Walker. [facility] [address], [place], [address], [place]. tel:[phone] Referring Provider: Aaron Barragan, [facility] [address], [place], [address]. tel:[phone] Office/Outpa tient Visit, Est [facility] , [address], [place], [address], [place] tel:[phone] [facility] , Rheumatoid arthritis (chief complaint) Vitamin D deficiencySe ronegative RAElevated liver enzymesFrye [facility] Sep- Nellie Aaron. [facility] [address], [place], [address], [place]. tel:[phone] Referring Provider: Aaron Barragan, [facility] [address], [place], [address]. tel:[phone] [facility] , [address], [place], [address], [place] tel:[phone] [facility] , No Information Nellie Aaron. [facility] [address], [place], [address], [place]. tel:[phone] Referring Provider: Aaron Barragan, [facility] [address], [place], [address]. tel:[phone] [facility] , [address], [place], [address], [place] tel:[phone] [facility] , No Information Nellie Walker. [facility] [address], [place], [address], [place]. tel:[phone] Referring Provider: Aaron Barragan, [facility] [address], [place], [address]. tel:[phone] Office/Outpa tient Visit, Est [facility] , [address], [place], [address], [place] tel:[phone] [facility] , Rheumatoid arthritis (chief complaint) Vitamin D deficiencySe ronHorton Medical Center risk medication monitoringEl evated liver enzymes 8 Nellie Walker. [facility] [address], [place], [address], [place]. tel:[phone] Referring Provider: Aaron Barragan, [facility] [address], [place], [address]. tel:[phone] [facility] , [address], [place], [address], [place] tel:[phone] [facility] , No Information 8 Nellie Walker. [facility] [address], [place], [address], [place]. tel:[phone] Referring Provider: Aaron Barragan, [facility] [address], [place], [address]. tel:[phone] [facility] , [address], [place], [address], [place] tel:[phone] [facility] , No Information 8 Nellie Walker. [facility] [address], [place], [address], [place]. tel:[phone] Referring Provider: Aaron Barragan, [facility] [address], [place], [address]. tel:[phone] Office/Outpa tient Visit, Est [facility] , [address], [place], [address], [place] tel:[phone] [facility] , Rheumatoid arthritis (chief complaint) Vitamin D deficiencySe ronegative RABone healthHigh risk medication monitoring 8 Nellie Aaron. [facility] [address], [place], [address], [place]. tel:[phone] Referring Provider: Aaron Barragan, [facility] [address], [place], [address]. tel:[phone] [facility] , [address], [place], [address], [place] tel:[phone] [facility] , Seronegative RA 8 Nellie Aaron. [facility] [address], [place], [address], [place]. tel:[phone] Referring Provider: Aaron Barragan, [facility] [address], [place], [address]. tel:[phone] Office/Outpa tient Visit, Est [facility] , [address], [place], [address], [place] tel:[phone] [facility] , Rheumatoid arthritis (chief complaint) Seronegative RABursitis of unspecified shoulderBone healthHigh risk medication monitoringVi tamin D deficiency 8 Nellie Aaron. [facility] [address], [place], [address], [place]. tel:[phone] Referring Provider: aAron Barragan, [facility] [address], [place], [address]. tel:[phone] [facility] , [address], [place], [address], [place] tel:[phone] [facility] , Seronegative RA 8 Aneta Elise. [facility] [address], [place], [address], [place]. tel:[phone] Referring Provider: Gosia Pond, [facility] [address], [place], [address]. tel:[phone] [facility] , [address], [place], [address], [place] tel:[phone] [facility] , Seronegative RA 8 Nellie Walker. [facility] [address], [place], [address], [place]. tel:[phone] Referring Provider: Aaron Barragan, [facility] [address], [place], [address]. tel:[phone] Office/Outpa tient Visit, Est [facility] , [address], [place], [address], [place] tel:[phone] [facility] , Rheumatoid arthritis (chief complaint) Seronegative RABursitis of unspecified shoulderBone healthHigh risk medication monitoringNovant Health Cle[facility] 8 Nellie Walker. [facility] [address], [place], [address], [place]. tel:[phone] Referring Provider: Aaron Barragan, [facility] [address], [place], [address]. tel:[phone] [facility] , [address], [place], [address], [place] tel:[phone] [facility] , Seronegative RA 8 [facility] Aaron. [facility] [address], [place], [address], [place]. tel:[phone] Referring Provider: Aaron Barragan, [facility] [address], [place], [address]. tel:[phone] [facility] , [address], [place], [address], [place] tel:[phone] [facility] , No Information [facility] Aaron. [facility] [address], [place], [address], [place]. tel:[phone] [facility] , [address], [place], [address], [place] tel:[phone] [facility] , Seronegative RA [facility] Aaron. [facility] [address], [place], [address], [place]. tel:[phone] Referring Provider: Aaron Barragan, [facility] [address], [place], [address]. tel:[phone] Office/Outpa tient Visit, Est [facility] , [address], [place], [address], [place] tel:[phone] [facility] , Rheumatoid arthritis (chief complaint) Seronegative RABone healthHigh risk medication monitoringBu rsitis of unspecified shoulder 7 [facility] Aaron. [facility] [address], [place], [address], [place]. tel:[phone] Referring Provider: Aaron Barragan, [facility] [address], [place], [address]. tel:[phone] [facility] , [address], [place], [address], [place] tel:[phone] [facility] , shelter (current) [facility] [address], [place], [address], [place]. tel:[phone] Referring Provider: Aaron Barragan, [facility] [address], [place], [address]. tel:[phone] [facility] , [address], [place], [address], [place] tel:[phone] [facility] , Seronegative RA [facility] Aaron. [facility] [address], [place], [address], [place]. tel:[phone] Referring Provider: Aaron Barragan, [facility] [address], [place], [address]. tel:[phone] [facility] , [address], [place], [address], [place] tel:[phone] [facility] , Seronegative RA [facility] Aaron. [facility] [address], [place], [address], [place]. tel:[phone] Referring Provider: Aaron Barragan, [facility] [address], [place], [address]. tel:[phone] [facility] , [address], [place], [address], [place] tel:[phone] [facility] , Seronegative RA 7 Piotr Bartlett. [facility] [address], [place], [address], [place]. tel:[phone] Referring Provider: Dhruv Balderrama, [facility] [address], [place], [address]. tel:[phone] Office/Outpa tient Visit, Est [facility] , [address], [place], [address], [place] tel:[phone] [facility] , Rheumatoid arthritis (chief complaint) Seronegative RABCone [facility] risk medication monitoring 7 Nellie Walker. [facility] [address], [place], [address], [place]. tel:[phone] Referring Provider: Aaron Barragan, [facility] [address], [place], [address]. tel:[phone] [facility] , [address], [place], [address], [place] tel:[phone] [facility] , Seronegative RA 7 Nellie Walker. [facility] [address], [place], [address], [place]. tel:[phone] Referring Provider: Aaron Barragan, [facility] [address], [place], [address]. tel:[phone] [facility] , [address], [place], [address], [place] tel:[phone] [facility] , No Information 7 Nellie Walker. [facility] [address], [place], [address], [place]. tel:[phone] Referring Provider: Aaron Barragan, [facility] [address], [place], [address]. tel:[phone] Office/Outpa tient Visit, Est [facility] , [address], [place], [address], [place] tel:[phone] [facility] y [facility] , Rheumatoid arthritis (chief complaint) [facility]gative [facility] monitoring Nellie Walker. [facility] [address], [place], [address], [place]. tel:[phone] Referring Provider: Aaron Barragan, [facility] [address], [place], [address]. tel:[phone] [facility] , [address], [place], [address], [place] tel:[phone] [facility] , Seronegative RA 7 Sung Boyer. [facility] [address], [place], [address], [place]. tel:[phone] Referring Provider: Merlin [place], [facility] [address], [place], [address]. tel:[phone] [facility] , [address], [place], [address], [place] tel:[phone] [facility] , Seronegative RA 7 Nellie Walker. [facility] [address], [place], [address], [place]. tel:[phone] Referring Provider: Aaron Barragan, [facility] [address], [place], [address]. tel:[phone] Office/Outpa tient Visit, Est [facility] , [address], [place], [address], [place] tel:[phone] [facility] , Rheumatoid arthritis (chief complaint) Seronegative RABone healthHigh risk medication monitoring 6 Nellie Walker. [facility] [address], [place], [address], [place]. tel:[phone] Referring Provider: Aaron Barragan, [facility] [address], [place], [address]. tel:[phone] Office/Outpa tient Visit, Est [facility] , [address], [place], [address], [place] tel:[phone] [facility] , Rheumatoid arthritis (chief complaint) Seronegative RAHigh risk medication monitoringLifeBrite [facility] 6 Nellie Walker. [facility] [address], [place], [address], [place]. tel:[phone] Referring Provider: Aaron Barragan, [facility] [address], [place], [address]. tel:[phone] Office/Outpa tient Visit, Est [facility] , [address], [place], [address], [place] tel:[phone] [facility] , Rheumatoid arthritis (chief complaint) Seronegative RAHigh risk medication monitoringBo [facility]- 6 Nellie Walker. [facility] [address], [place], [address], [place]. tel:[phone] Referring Provider: Aaron Barragan, [facility] [address], [place], [address]. tel:[phone] Office/Outpa tient Visit, Est [facility] , [address], [place], [address], [place] tel:[phone] [facility] , Rheumatoid arthritis (chief complaint) Seronegative RAHigh risk medication monitoringBo [facility] 6 Nellie Walker. [facility] [address], [place], [address], [place]. tel:[phone] Referring Provider: Aaron Barragan, [facility] [address], [place], [address]. tel:[phone] Office/Outpa tient Visit, Est [facility] , [address], [place], [address], [place] tel:[phone] [facility] , Rheumatoid arthritis (chief complaint) Seronegative RAHigh risk medication monitoringBo [facility] 6 Nellie Walker. [facility] [address], [place], [address], [place]. tel:[phone] Referring Provider: Aaron Barragan, [facility] [address], [place], [address]. tel:[phone] Office/Outpa tient Visit, Est [facility] , [address], [place], [address], [place] tel:[phone] [facility] , Rheumatoid arthritis (chief complaint) Seronegative RAHigh risk medication monitoringBo [facility] Mar- 6 5 [facility] Aaron. [facility] [address], [place], [address], [place]. tel:[phone] Referring Provider: Aaron Barragan, [facility] [address], [place], [address]. tel:[phone] Office/Outpa tient Visit, Est [facility] , [address], [place], [address], [place] tel:[phone] [facility] , Rheumatoid arthritis (chief complaint) Rheumatoid ArthritisThe rapeutic Drug MonitoringLifeBrite [facility] 5 [facility] Aaron. [facility] [address], [place], [address], [place]. tel:[phone] Referring Provider: Aaron Barragan, [facility] [address], [place], [address]. tel:[phone] Office/Outpa tient Visit, Est [facility] , [address], [place], [address], [place] tel:[phone] [facility] , Rheumatoid Arthritis (chief complaint) Rheumatoid ArthritisThe rapeutic Drug MonitoringOt her specified counseling [facility] Aaron. [facility] [address], [place], [address], [place]. tel:[phone] Referring Provider: Aaron Barragan, [facility] [address], [place], [address]. tel:[phone] Office/Outpa tient Visit, Est [facility] , [address], [place], [address], [place] tel:[phone] [facility] , Rheumatoid Arthritis (chief complaint) Rheumatoid ArthritisOst eoarthrosis, localized, primary, involving lower legTherapeut ic Drug MonitoringOt her specified counseling 4 Nellie Walker. [facility] [address], [place], [address], [place]. tel:[phone] Referring Provider: Aaron Barragan, [facility] [address], [place], [address]. tel:[phone] [facility] , [address], [place], [address], [place] tel:[phone] [facility] , No Information 4 Nellie Walker. [facility] [address], [place], [address], [place]. tel:[phone] Referring Provider: Aaron Barragan, [facility] [address], [place], [address]. tel:[phone] Office/Outpa tient Visit, Est [facility] , [address], [place], [address], [place] tel:[phone] [facility] , Rheumatoid Arthritis (chief complaint) Rheumatoid ArthritisThe rapeutic Drug MonitoringOs teoarthrosis , localized, primary, involving lower legOther specified counseling Mar-0 4-201 4 Nellieshyanne Walker. [facility] [address], [place], [address], [place]. tel:[phone] Referring Provider: Aaron Barragan, [facility] [address], [place], [address]. tel:[phone] Office/Outpa tient Visit, Est [facility] , [address], [place], [address], [place] tel:[phone] [facility] , Rheumatoid Arthritis (chief complaint) Rheumatoid ArthritisOth er specified counselingTh erapeutic Drug MonitoringOs teoarthrosis , localized, primary, involving lower leg Sep-1 0-201 3 Nellie Walker. [facility] [address], [place], [address], [place]. tel:[phone] Referring Provider: Aaron Barragan, [facility] [address], [place], [address]. tel:[phone] Office/Outpa tient Visit, Est [facility] , [address], [place], [address], [place] tel:[phone] [facility] , Rheumatoid Arthritis (chief complaint) Rheumatoid ArthritisOth er specified counselingTh erapeutic Drug MonitoringOs teoarthrosis , localized, primary, involving lower legRash and other nonspecific skin eruption May-0 8-201 3 Nellie Walker. [facility] [address], [place], [address], [place]. tel:[phone] Referring Provider: Aaron Barragan, [facility] [address], [place], [address]. tel:[phone] [facility] , [address], [place], [address], [place] tel:[phone] [facility] , Monitor chronic high risk medications (chief complaint) No Information 3 Nellie Walker. [facility] [address], [place], [address], [place]. tel:[phone] Referring Provider: Aaron Barragan, [facility] [address], [place], [address]. tel:[phone] Office/Outpa tient Visit, Est [facility] , [address], [place], [address], [place] tel:[phone] [facility] , Rheumatoid Arthritis (chief complaint) Rheumatoid ArthritisOst eoarthrosis, localized, primary, involving lower legOther specified counselingTh erapeutic Drug Monitoring 3 Nellie Walker. [facility] [address], [place], [address], [place]. tel:[phone] Referring Provider: Aaron Barragan, [facility] [address], [place], [address]. tel:[phone] Office/Outpa tient Visit, Est [facility] , [address], [place], [address], [place] tel:[phone] [facility] , Rheumatoid Arthritis (chief complaint) Rheumatoid ArthritisOst eoarthrosis, localized, primary, involving lower legTherapeut ic Drug MonitoringOt her specified counseling 2 Nellie Walker. [facility] [address], [place], [address], . tel:[phone] Referring Provider: Aaron Barragan, [facility] , PCheri [address], [place], [address]. tel:[phone] Family History Family Member Type Diagnosis Age At Onset Problem (finding) No family hist ory of Rheumatoid arthritis Immunizations Vaccine Date Status Comments COVID-19 Pfizer administered Note: 2020 ; Source: Source Unspecified Payers Payer name Insurance type Covered alliance party ID Authoriza tion(s) [employer] Medicare Advantage/[employer] BL [id number] Social History Type Description Quantity Date Captured Comments Alcohol Use Details Unknown Caffeine Use Details Unknown Tobacco Use Status No Information Smoking Status No Information Sex Female Chief Complaint And Reason For Visit No Information Reason For Referral Reason For Referral No Information History Of Present Illness Encounter Date Complaint History Of Prese nt Illness Rheumatoid arthritis Rheumatoid arthritis Rheumatoid arthritis Rheumatoid arthritis Rheumatoid arthritis Rheumatoid arthritis Rheumatoid arthritis Rheumatoid arthritis Rheumatoid arthritis Rheumatoid arthritis Rheumatoid arthritis Rheumatoid arthritis Rheumatoid arthritis Rheumatoid arthritis Rheumatoid arthritis Rheumatoid arthritis Rheumatoid arthritis Rheumatoid arthritis Rheumatoid arthritis Rheumatoid arthritis Rheumatoid arthritis Rheumatoid arthritis Rheumatoid arthritis Rheumatoid arthritis Rheumatoid arthritis Rheumatoid arthritis Rheumatoid arthritis Rheumatoid arthritis Rheumatoid arthritis Functional Status Date Functional Assessmen t No Information Instructions Date Instruction Additional Infor mation No Information Assessments Type Assessment Date No Information Patient Care Teams Name Effective Dates (start - stop) Status Members No Information
== END 2023-07-19 09:25 | disposition home or self-care (01) ==
LOC: NFLDREF 11:37
PROVIDERS: PCP Internal Medicine; Referring Provider Internal Medicine; Visit Provider Internal Medicine
DX: Z13.6 Encounter for screening for cardiovascular disorders (principal)
CPT/HCPCS: 80061

== ENCOUNTER 2023-10-18 21:09 | Emergency (ER) | payer MEDICARE, BC, SELFPAY ==
[2023-10-18 21:28] VITALS: BP 137/91; PULSE 86; RESP 16; TEMP 36.4; O2SAT 97; BMI 32.1
--- NOTE | 2023-10-18 21:43 | ED_ITS ---
HPI - General Adult General Date Seen: 10/18/23 Chief complaint: Fall/Minor Trauma Stated complaint: Fall on face-bleeding Time Seen by Provider: 10/18/23 21:43 History of Present Illness HPI narrative: 78-year-old female presenting the ER today because she fell at home. She had been sorting through some photos and set the box and her purse to the side. As she was getting up from the couch, she bumped her foot against the box and then lost her balance and fell over. This led to a ground level trip and fall and hit her face on the hardwood floor. She hit her face against the floor. She denies loss of consciousness. She has noted bruising and swelling on the left side of her face and left cheek. No loss of consciousness. She does not take any anticoagulants. No other injuries. No neck pain. No back pain. No injury to her shoulders or wrists or elbows. No hip pain or lower extremity injury. She has a history of poor balance and is actually currently doing therapy to help improve her balance. She also has a history of cerebral amyloid an giopathy, obstructive sleep apnea, seronegative rheumatoid arthritis, elevated BMI, depression/anxiety, pituitary microadenoma with high pro prolactinemia. Related Data Home Medications Medication Instructions Recorded Confirmed cabergoline 0.5 mg tablet 0.25 mg PO 2XW 07/06/22 04/20/23 Previous Rx's Medication Instructions Recorded sertraline 100 mg tablet 100 mg PO QDAY #90 tabs 04/20/23 Allergies Allergy/AdvReac Type Severity Reaction Status Date / Time No Known Drug Allergies Allergy Verified 07/22/23 10:07 [facility] Surgical History (Updated 07/20/23 @ 15:32 by Cheryl Camara) History of toe surgery ?Z98.890 - Other specified postprocedural states (ICD-10) History of blepharoplasty ?Z98.890 - Other specified postprocedural states (ICD-10) History of amputation of toe ?Z89.429 - Acquired absence of other toe(s), unspecified side (ICD-10) History of cataract surgery ?Z98.49 - Cataract extraction status, unspecified eye (ICD-10) History of total knee replacement ?Z96.659 - Presence of unspecified artificial knee joint (ICD-10) History of hip replacement ?Z96.649 - Presence of unspecified artificial hip joint (ICD-10) Family History (Updated 07/20/23 @ 15:31 by Cheryl Camara) Father Colon cancer Social History (Updated 07/23/23 @ 16:09 by Josie Mitchell ~ [facility], [facility]) What is your current living situation?: I presently have a place to live Problems where you live: no known problems In the past 12 months, utilities in danger of being shut off: no In past 12 months, lack of transportation kept you from medical appts, meetings, work, or getting things needed for daily living: no In the past 12 mos, have been you worried that your food would run out before you had money to buy more?: never true In the past 12 mos, the food you bought just didn't last and you didn't have money to buy more?: never true Smoking Status: Never smoker Do you use any of these nicotine containing products: None How often do you have a drink containing alcohol: never How often do you have six or more drinks on one occasion: Never AUDIT-C Alcohol total score: 0 How often does anyone, including family, friends and others, physically hurt you : never How often does anyone, including family, friends and others, insult or talk down to you: never How often does anyone, including family, friends and others, threaten you with harm: never How often does anyone, including family, friends and others, scream or curse at you: never Little interest or pleasure in doing things: several days Feeling down, depressed, or hopeless: several days service: No Exam 2 Narrative: Exam Narrative: Constitutional: Appears well-developed and well-nourished. Alert. Conversant. Non toxic. HENT: Head: No depressed skull fracture, Raccoon Eyes, Ruiz's sign, or hemotympanum. Face normal. TMs normal. She has signs of early ecchymosis affecting her left frontal bone and left zygoma, above and below her left eye. Who no palpable depressed frontal bone or facial fracture. Normal EOMs. No exophthalmos or enophthalmos. Normal vision in her left eye and right eye to confrontation. Nose: Nose normal. Mouth/Throat: Oral mucosa is clear and moist. no trismus. Pharynx normal. Tonsils symmetric. No tonsillar enlargement, erythema, or exudate. Eyes: Conjunctivae normal. EOM normal. Pupils equal, round, and reactive to light. No scleral icterus. Previous cataract repair. Neck: Normal range of motion. Neck supple. No tracheal deviation present. Cardiovascular: Normal rate, regular rhythm. No gallop. No friction rub. No murmur heard. Symmetric radial artery pulses Pulmonary/Chest: Effort normal. No stridor. No respiratory distress. No wheezes. No rales. No rhonchi . No tenderness. Abdominal: Soft. Bowel sounds normal. No distension. No mass. No tenderness. No rebound. No guarding. Musculoskeletal: RUE: Normal range of motion. No tenderness. No deformity LUE: Normal range of motion. No tenderness. No deformity RLE: Normal range of motion. No edema. No tenderness. No deformity LLE: Normal range of motion. No edema. No tenderness. No deformity Lymph: No cervical adenopathy. Neurological: Mental status normal. Attention normal. Alert and oriented x3. GCS 15. Memory normal. Speech fluent. Cognition normal. Cranial Nerves intact II-XII except I did not formally test gag or visual acuity. EOMI. Palate elevates symmetrically and tongue protrudes in the midline. Strength: 5/5 trapezius on the right and left 5/5 deltoid on the right and left 5/5 biceps on the right and left 5/5 triceps on the right and left 5/5 warp hauler on the right and left 5/5 thumb opposition on the right and le ft 5/5 finger abduction on the right and le ft 5/5 hip flexors (L3) on the right and le ft 5/5 quadriceps (L4) on the right and lef t 5/5 tibialis anterior on the right and l eft 5/5 EHL (L5) on the right and left 5/5 gastrocnemius (S1) on the right and left 5/5 hamstring on the right and left Sensation intact to light touch in both upper extremities (C4-T1) Sensation intact to light touch in Both lower extremities (L4-S1). Finger to nose and coordination normal. Gait normal. Skin: Skin is warm and dry. No rash noted. No pallor. Normal capillary refill. Psychiatric: Normal mood. Normal affect. Const: Vital Signs, click to edit/add: Vital Signs - 24 hr 10/18/23 21:28 Temperature 97.6 F Pulse Rate [Pulse Oximeter] 86 Respiratory Rate 16 Blood Pressure [Ri ght Upper Arm] 137/91 H Pulse Oximetry 97 Oxygen Delivery Me thod Room Air Course Vital Signs Vital signs: Initial Vital Signs Temperature 97.6 F 10/18/23 21:28 Temperature Source Temporal Artery Scan 10/18/23 21:28 Pulse Rate 86 10/18/23 21:28 Pulse Rhythm Regular 10/18/23 21:28 Respiratory Rate 16 10/18/23 21:28 Blood Pressure 137/91 H 10/18/23 21:28 Blood Pressure Mean 106 H 10/18/23 21:28 Blood Pressure Position Sitting 10/18/23 21:28 Pulse Oximetry 97 10/18/23 21:28 Oxygen Delivery Method Room Air 10/18/23 21:28 Vital Signs Temperature 97.6 F 10/18/23 21:28 Pulse Rate 86 10/18/23 21:28 Respiratory Rate 16 10/18/23 21:28 Blood Pressure 137/91 H 10/18/23 21:28 Pulse Oximetry 97 10/18/23 21:28 Oxygen Delivery Method Room Air 10/18/23 21:28 Temperature 97.6 F 10/18/23 21:28 Pulse Rate 86 10/18/23 21:28 Respiratory Rate 16 10/18/23 21:28 Blood Pressure 137/91 H 10/18/23 21:28 Pulse Oximetry 97 10/18/23 21:28 Oxygen Delivery Method Room Air 10/18/23 21:28 Medications Administered Medications: Discontinued Medications Generic Name Dose Route Start Last Admin Trade Name Freq PRN Reason Stop Dose Admin Acetaminophen 1,000 mg 10/18/23 21:56 10/18/23 22:00 Acetaminophen 500 Mg Tablet PO 10/18/23 21:57 1,000 mg ONCE ONE Administration Medical Decision Making MDM Narrative Medical decision making narrative: This patient presents with blunt head trauma after she lost her balance and fell, striking her face against a hardwood floor at home.. Differential includes intracranial injuries (e.g. skull fracture, epidural hematoma, subdural hematoma, intracerebral hemorrhage, and traumatic subarachnoid hemorrhage), verses concussion or other traumatic brain injury. CT imaging was obtained and fortunately was normal. At this time it appears that the patient's symptoms are due to a concussion. She also has significant swelling of her left frontal bone and left zygoma. Given the amount of swelling we did obtain facial CT to look for associated fractures there and fortunately no significant facial fracture was identified. She is not having any neck pain and I do believe her C-spine can be cleared based on nexus clinical criteria. The remainder of her head to toe traumas am is negative The patient understand that they must return if any red flags appear/develop in the coming hours/days, as this may represent an indication to perform a repeat CT scan or further evaluation. I have noted that red flags include: headaches that get worse, increased drowsiness, strange behavior, repetitive speech, seizures, repeated vomiting, growing confusion, increased irritability, slurred speech, weakness or numbness, and loss of responsiveness. This information will also be provided in writing at discharge. The patient's questions have been answered. Imaging Data CT facial bones: Attestation: I have reviewed the pertinent imaging results. Radiologist's impression: Impression: Left periorbital scalp contusion, no other acute abnormality appreciated. CT scan - head: Attestation: I have reviewed the pertinent imaging results. Radiologist's impression: Impression: Left frontal scalp hematoma, no other acute abnormality appreciated. Discharge Plan Discharge Clinical Impression: Contusion of face Patient Disposition: Home, Self-Care Condition: Stable Instructions: Facial Contusion (ED) Additional Instructions: As we discussed, please come back to the ER right right away if you have any concerning symptoms such as worsening headache, confusion, blurry vision, vomiting, forgetfulness, or if you have any other problems. You do have significant bruising on your forehead and left cheek but no signs of any broken bones in your face or eye socket. We can anticipate that the bruising will likely get worse and turned purple over the next couple of days. You will likely have a black eye and it is possible that your I have may swell shut for a day or 2. To reduce the swelling, use ice for 20 minutes every 2-3 hours. You can use Tylenol if needed for pain or ibuprofen. Prescriptions: No Action cabergoline 0.5 mg tablet 0.25 mg PO 2XW sertraline 100 mg tablet 100 mg PO QDAY Qty: 90 3RF Follow Up/Referrals: Peggy Styles MD [Primary Care Provider] - Stand Alone Forms: coJuvo Info Instructions
--- NOTE | 2023-10-18 21:55 | CT_ITS ---
Patient: MYRON JOE Facility:?[facility] Patient ID:?[id number] Site Patient ID:?[id number]. Site :?1945 Study:?CT-Facial W/O-10/18/2023 10:31:29 PM Ordering Physician:CANDICE Final Report: Indication: Fall, left facial pain Technique: Noncontrast CT through the maxillofacial structures with multiplanar reformats Comparison: None Findings: Orbits: Left periorbital scalp contusion. Intraorbital tissues are unremarkable. No orbital fracture appreciated. Paranasal sinuses: No acute abnormality appreciated. Mild sinus disease. Mastoid air cells: No significant abnormality appreciated. Maxilla: No acute fracture. Mandible: No acute fracture. Zygomatic arch, squamous temporal bone, and pterygoid plates: No acute fracture. Nasal bones: No acute fracture. Visualized cervical spine: No acute abnormality appreciated. Other: No other significant abnormality appreciated. Impression: Left periorbital scalp contusion, no other acute abnormality appreciated. Please note that all CT scans at this facility use dose modulation, iterative reconstruction, and/or weight-based dosing when appropriate to reduce radiation dose to as low as reasonably achievable. Dictated by Jose Kaur MD @ 10/18/2023 11:27:59 PM Signed by:?Jose Kaur MD @10/18/2023 11:27:59 PM (Electronic Signature)
--- NOTE | 2023-10-18 21:55 | CT_ITS ---
Patient: MYRON JOE Facility:?[facility] Patient ID:?[id number] Site Patient ID:?[id number]. Site :?1945 Study:?CT-Head W/O-10/18/2023 10:31:33 PM Ordering Physician:CANDICE Final Report: Indication: Fall, left hip pain Technique: Noncontrast CT through the head with multiplanar reformats Comparison: CT head performed 07/14/2020 Findings: Brain: No acute hemorrhage. No acute infarct. No significant mass effect or midline shift. No gross evidence of a mass lesion or cerebral edema. Moderate chronic microvascular ischemic disease. Right frontoparietal gliosis. Ventricles: No acute abnormality appreciated. Orbits, sinuses, mastoids: No acute abnormality appreciated. Mild sinus disease. Calvarium and soft tissues: Left frontal scalp hematoma, no underlying fracture appreciated. Impression: Left frontal scalp hematoma, no other acute abnormality appreciated. Please note that all CT scans at this facility use dose modulation, iterative reconstruction, and/or weight-based dosing when appropriate to reduce radiation dose to as low as reasonably achievable. Dictated by Jose Kaur MD @ 10/18/2023 11:26:17 PM Signed by:?Jose Kaur MD @10/18/2023 11:26:17 PM (Electronic Signature)
[2023-10-18] MEDS: ACETAMINOPHEN 500 MG TABLET 1000 MG PO (22:00)
--- OUTSIDE RECORDS SUMMARY | 2023-10-18 22:14 | XMS_ITS | Clinical Summary ---
Author Name Unknown Organization [email or web address] Address [place], [place] [address] Care Team Providers Care Prospect Manager Name Role Phone Peggy Styles MD Primary Care Provider [phone] Allergies Active Allergy Reactions Criticality Noted Date [...] SODIUM (METHOTREXATE, ANTI-RHEUMATIC, ORAL) Take by mouth. Active hydroxychloroquine (PLAQUENIL) 200 mg tablet Take 200 mg by mouth 2 times daily. Active predniSONE (DELTASONE) 5 mg tablet Take 5 mg by mouth once daily with a meal. Active Cholecalciferol, Vitamin D3, (VITAMIN D-3) 2,000 unit tablet Take 2,000 Units by mouth once daily. Active MULTIVITAMIN ORAL Take by mouth. Act reji sulfaSALAzine (AZULFIDINE) 500 mg tablet 11/19/2021 Active CPAPIndications:ISA on CPAP CPAP machine for home use at pressure 11.6 cmw, full face mask x1/3month with a full face cushion x1/mo 1 Each 11 12/22/2021 Active cabergoline (DOSTINEX) 0.5 mg tablet 11/14/2021 Active Active Problems Problem Noted Date [...] 10/24/2014 9:05 AM CDT Plan of Treatment Upcoming Encounters Date Type Department Care Team (Late st Contact Info) Description 11/03/2023 8:30 AM CDT Office Visit [facility] [address] [place] [address] Aaron Herrera MD [address] [place] [address] 11/10/2023 3:30 PM CDT Office Visit [facility] [address] [place] [address] Aaron Herrera MD [address] [place] [address] Health Maintenance Due Date Last Done Comments [...] 1 - PCV) 2011 COVID-19 vaccine series (2022-24 season) 2023 06/24/2021, 08/24/2020, 08/03/2020 Influenza for age 65+ 02/06/2024 Medical Devices Implanted Type Area Cat Sitter Device Identifier Shelf Expiration Date Model / Serial / Lot Plate Low Profile Mtp Lt Sht Contoured Titnm - [id number] Implanted:Qty: 1 on 10/24/2014 by Bill Chan DPM at [facility] Left: Foot [employer] AR-8944C L-P # / / Description:Load #1 6 2014-8933- - [id number] Implanted:Qty: 1 on 10/24/2014 by Bill Chan DPM at [facility] Left: Foot [employer] AR-8933- 20 / / Description:3mm low profile screw titanium cortical 20mm #[id number] load#1 6 10/23/2014 Screw Joselito Low Profile 3.0x18mm Titnm - [id number] Implanted:Qty: 1 on 10/24/2014 at [facility] [employer] AR-8933-18# / / [id number] - [id number] Implanted:Qty: 2 on 10/24/2014 by Bill Chan DPM at [facility] Left: Foot [employer] AR-8933V -12 / / Description:3.0mm libertad screws titanium arthrex #[id number] load 1 6 10/23/[id number] - [id number] Implanted:Qty: 1 on 10/24/2014 by Bill Chan DPM at [facility] Left: Foot [employer] AR-8933V -18 / / Description:3.0 mm libertad screw s titanium 18mm #[id number] load #1 6 10/23/2014 [id number] - [id number] Implanted:Qty: 1 on 10/24/2014 by Bill Chan DPM at [facility] Left: Foot [employer] AR-8933V -20 / / Description:3.0mmval screw # [id number] Load#1 6 10/23/2014 Screw Joselito Low Profile 3.0x16mm Titnm - [id number] Implanted:Qty: 1 on 10/24/2014 by Bill Chan DPM at [facility] Left: Foot [employer] AR-8933- 16# / / Description:Load # 1 6 10/23 Advance Directives * Full Code (Latest Code Status on File) Date Activated Date Inactivated Comments 10/22/2014 12:49 PM 10/24/2014 5:33 PM Care Teams Prospect Manager Relationship Specialty Start Date End Date Peggy Styles MD [address] [place] [address] PCP - General Internal Medicine 10/23/14
--- OUTSIDE RECORDS SUMMARY | 2023-10-18 22:15 | XMS_ITS | Data Portability ---
Author Name Unknown Address [address] [place] [address] Phone [phone] Organization [facility] Address [address] [place] [address] Assessment No assessment recorded. Plan of Treatment Reminders Order Date Submit Date Provider Last Modified By Organization Details Last Modified Time Details Appointments None recorded. Lab rapid SARS CoV 2 Ag, QL IA, respiratory specimen 2019 020 [email or web address] Not available 0 11:34:22 Referral None recorded. Procedures None recorded. Surgeries None recorded. Imaging None recorded. Medication Orders None recorded. Patient TargetsNo targets recorded. Patient Instructions Encounter Date Encounter Id Patient Instructions Last Modified By Organization Details Last Modified Time 05/10/2020 [id number] Please Watch for fever, cough, or shortness of breath, or other symptoms of COVID-19. If you experience above symptoms. Please call the clinic or go to the nearest healthcare facility. The best way to prevent illness is to avoid being exposed to this virus. The virus is thought to spread mainly from [id number]. Between people who are in close contact with one another (within about 6 feet). Through respiratory droplets produced when an infected person coughs, sneezes or talks. These droplets can land in the mouths or noses of people who are nearby or possibly be inhaled into the lungs. Some recent studies have suggested that COVID-19 may be spread by people who are not showing symptoms. If soap and water are not readily available, use a hand roll plugger that contains at least 60% alcohol. Cover all surfaces of your hands and rub them together until they feel dry. Avoid touching your eyes, nose, and mouth with unwashed hands. [email or web address] Not available 05/15/2020 11:35:42 spend 50% of the time counseling [email or web address] Not available 05/15/2020 11:36:11 Reason for Referral None Reported. Problems Name Status Onset Date Resolution Date Notes Provider Name and Address Organization Details Recorded Time Rheumatoid arthritis Active 05/10/20 20 [facility] 05/10/2020 13:00:50 Notes:rheumatoid arthritis 2 003 Problem Notes None recorded. Medical Equipment None Reported. Allergies No known drug allergies Medications Name Sig Start Date Stop Date Status Note LastModified by Organization Details LastModified Time amoxicillin 500 mg capsule active Not Available Not Available Not Available sulfasalazine 500 mg tablet,delayed release active Not Available Not Available Not Available methotrexate sodium 2.5 mg tablet active Not Available Not Availabl e Not Available cephalexin 500 mg capsule active Not Available Not Available Not Available mupirocin 2 % topical ointment active Not Available Not Avail able Not Available hydroxychloroquine 200 mg tablet active Not Available Not Availabl e Not Available sertraline 50 mg tablet active Not Available Not Available Not Available Fluzone High-Dose Quad (PF) 240 mcg/0.7 mL IM syringe ADM 0.7M L IM UTD active Not Available Not Available No t Available Vitals None Recorded Social History None recorded. Functional Status None recorded. Mental Status None recorded. Family History Nothing Reported. Medical History No medical history recorded. Gynecological HistoryNo gynecological history recorded. Obstetrics History GPAL:G 0 P 0 0 0 0 Past Encounters Encounter ID Performer Location Encounter Start Date Encounter Closed Date Diagnosis/Indication Diagnosis SNOMED-CT Code [id number] Ghanshyam Crockett APRN-CLERICAL SUPPORT SPECIALIST-C [place] [address] [place] [address] 05/10/2020 11:11:12 05/15/2020 11:32:27 Cough [id number] Suspected COVID-19 [id number] Counseling [id number] Health Concerns Section Related Observation LastModified by Organization Detai ls LastModified Time None Recorded Concern Status LastModified by Organization Details LastModified Time None Recorded Advance Directives Directive None Recorded Payers Encounter Date Sequence Insurance Name Policy Number Policy Rodriguez Covered Member ID Rodriguez Member ID Guarantor Name 05/10/2020 1 DUSTINIVÁN [id number] Rebeca Schwartz [id number] Cherry Schwartz Notes Date Note Type Note Provider Name and Address Organization Details Recorded Time 05/10/2020 text/html HPI Notes: A pleasant 75yr old female with PMH of rheumatoid arthritis is here for covid-19 testing. She is complaining about cough and generalize fatigue. She is seeking covid-19 testing. Otherwise denies shortness of breath. No fevers. No recent illness. Ghanshyam Crockett, [facility]-CLER[facility] SUPPORT SPECIALIST-[facility] [address] [place], [address], [employer] 05/15/2020 11:37:31 OBGyn Episode No OBEpisode recorded.
== END 2023-10-18 23:59 | disposition home or self-care (01) ==
PROVIDERS: Emergency Provider Emergency Medicine; PCP Internal Medicine
DX: S00.83XA Contusion of other part of head, initial encounter (principal); W01.10XA Fall on same level from slipping, tripping and stumbling with subsequent striking against unspecified object, initial encounter
CPT/HCPCS: 70450; 70486; 99283; A9270

== ENCOUNTER 2023-11-08 13:00 | Outpatient (RCR) | payer MEDICARE, BC, SELFPAY ==
--- NOTE | 2023-08-11 13:49 | PT.OPEX ---
PT [place] Outpatient Eval PT [facility] Outpatient Eval Start: 08/11/23 08:45 Freq: Status: Active Protocol: Document 08/11/23 08:45 MLS (Rec: 08/11/23 13:47 MLS [id number]) E-signed By Emelina Estrada DPT Physical Therapy Outpatient Evaluation Insurance Information Recert Due Date 11/08/23 Insurance Name Medicare B,Blue Cross/Blue Shield Medical Diagnosis R26.89 other abnormalities of gait and mobility Treating Diagnosis Balance Decrease risk of falls LE strengthening Referring MD Dr. Styles Subjective Subjective Patient is a 78 year old female who presents to physical therapy with signs and symptoms of imbalance. She states that she has had surgery on both of her knees and hips. She states that she feels weak in her legs. She si having difficulty reaching over to pick something up. She states that currently she does some walking. She reports that she also has some left shoulder pain that comes and goes. She states that she has had balance problems the last year or two and gotten worse in the last year. She states that she has had a couple falls in the last year. She states that when she falls, she scoots to the stairway, grabs the railing and pull herself up. She states that she has to be careful with how she is walking and picking up her feet. She states that her last fall was last Wednesday. She leaned over and fell forward and hit her head. She states that she was able to get up. She states that she has stairs in her house and uses them daily to get to her room. Significant past medical history includes B total knee replacements, B total hip replacements, sleep apnea (CPAP) rheumatoid arthritis. Patient would like to get stronger through her physical therapy sessions. Pain Comments Today: none today Current Work Status Retired Occupation field support specialist - retired Preferred Name Cherry Objective Other/Pertinent Objective GAIT/FUNCTIONAL MOBILITY Forward flexed posture, valgus knees B Romberg eyes open: 15 sec with perturbation Romberg eyes closes: 15 sec 30 second sts: 8 5 time sts: 18 sec Age Bracket Time (sec) 60-69 yo 11.4 / 70-79 yo 12.6 / 80- 89 yo 14.8 TUG 31 sec - 13.5 seconds is cut off for norm 60 ? 69 years 8.1 (7.1 ? 9.0) / 70 ? 79 years 9.2 (8.2 ? 10.2) / 80 ? 99 years 11.3 ( 10.0 ? 12.7) LLE MMT: Hip flexion: R 3+/5 L 3+/5 Hip abduction: R 3/5 L 3/5 Hip extension: R 3+/5 L 3+/5 Knee flexion: R 3+/5 L 3+/5 Knee extension: R 3+/5 L 3+/5 TXAccess Code: [email or web address] URL: [email or web address]/ Date: 08/11/2023 Prepared by: Emelina Estrada Exercises - Standing March with Counter Support - 1 x daily - 7 x weekly - 3 sets - 10 reps - Standing Hip Abduction with Unilateral Counter Support - 1 x daily - 7 x weekly - 3 sets - 10 reps - Standing Hip Extension with Unilateral Counter Support - 1 x daily - 7 x weekly - 3 sets - 10 reps Functional Test Performed & Score 24/56 significant risk of falls. Assessment Assessment/Impression Pt is a 78year old female who presents with concerns of balance issues. Patient also has notable objective findings including multiple falls and decreased strength which are also likely contributing to the problem. Patient is a good candidate for skilled therapy to target deficits described above. Skilled PT intervention is necessary for use of therapeutic exercise manual therapy, neuromuscular re- education, and therapeutic activity. Functional impairments include difficulty with: standing, walking, and ADLs. See appropriate sections of PT eval for complete list of goals and POC. D/C plan and criteria is for pt to achieve the goals as listed below or until max rehab potential is met. Pt was agreeable with plan of care and goals established. Primary Functional Limitations standing walking ADLs Plan of Care Rehabilitation Potential Good Physical Therapy Goals Within 10-12 weeks: 1.Pt will demonstrate independence in performance of home exercise program with the use of video and/or handouts in order to optimize functional mobility and reduce risk for re-injury. 2.Pt will demonstrate consistent HEP compliance to ensure progress in reaching established goals during course of care. 3.Patient will be able to stand and make dinner in the kitchen without difficulty. 4.Patient will report pain levels <2/10 with all activities in order to improve functional mobility at home, work and during functional leisure activities. 5.Patient will be able to walk up to one mile without difficulty. 6.Patient will be able to bend and lift household items from the floor to shoulder height to perform ADLs without pain. 7.Pt will be able to ascend/ descend 1 flight of stairs in order to perform ADLs pain free. 8.Pt will exhibit 5 pt improvement in [place] Balance measure to demonstrate functional improvement and progress towards goals Coordination/Communication With Referral Source Treatment Plan/Direct Interventions Neuromuscular Re-ed, Therapeutic Activities, Therapeutic Exercises Patient Will Be Discharged From Therapy Independently Progressing Evaluation Billing Untimed Code Treatment Minutes 30 Complexity Low Certification Information Physician Comment/Change : Physician NPI Number #
--- NOTE | 2023-11-08 13:39 | PT.OPDNX ---
PT [facility] Daily [facility] Daily Note Start: 08/11/23 08:45 Freq: Status: Active Protocol: Document 11/08/23 10:24 MLS (Rec: 11/08/23 13:39 MLS [id number]) E-signed By Emelina Estrada DPT PT OP Daily Progress Note Visit Information Note Type Daily Note Visit Number 9 Insurance Information Recert Due Date 02/05/24 Insurance Name Medicare B,Blue [employer] Medical Diagnosis R26.89 other abnormalities of gait and mobility Treating Diagnosis Balance Decrease risk of falls LE strengthening Referring MD Dr. Styles Subjective Subjective Patient is a 78 year old female who presents to physical therapy with signs and symptoms of imbalance. She states that she has been really busy. She reports that her head feels better since the fall. She is using Tylenol on and off. She is just getting back to doing her home exercises. Pain Comments Today: none today Preferred Name Cherry Objective Other/Pertinent Objective GAIT/FUNCTIONAL MOBILITY Forward flexed posture, valgus knees B Romberg eyes open: 15 sec with perturbation Romberg eyes closes: 15 sec 30 second sts: 8 5 time sts: 18 sec Age Bracket Time (sec) 60-69 yo 11.4 / 70-79 yo 12.6 / 80- 89 yo 14.8 TUG 31 sec - 13.5 seconds is cut off for norm 60 ? 69 years 8.1 (7.1 ? 9.0) / 70 ? 79 years 9.2 (8.2 ? 10.2) / 80 ? 99 years 11.3 ( 10.0 ? 12.7) LLE MMT: Hip flexion: R 3+/5 L 3+/5 Hip abduction: R 3/5 L 3/5 Hip extension: R 3+/5 L 3+/5 Knee flexion: R 3+/5 L 3+/5 Knee extension: R 3+/5 L 3+/5 Functional Test Performed & Score 24/56 significant risk of falls. Patient Instructed in Risks/Benefits Yes Therapeutic Exercise Therapeutic Exercise Minutes (minutes) 18 Therapeutic Exercise: To Restore YTB: Functional Status Standing august 2 x10 standing abduction 2 x10 standing extension 2x10 standing heel raises 2 x 10 Standing mini squat 2 x10 Standing HS curl 2 x 10 Access Code: [email or web address] URL: [email or web address] Date: 08/11/2023 Prepared by: Emelina Estrada Exercises - Standing March with Counter Support - 1 x daily - 7 x weekly - 3 sets - 10 reps - Standing Hip Abduction with Unilateral Counter Support - 1 x daily - 7 x weekly - 3 sets - 10 reps - Standing Hip Extension with Unilateral Counter Support - 1 x daily - 7 x weekly - 3 sets - 10 reps Therapeutic Activity Therapeutic Activity Minutes (minutes) 25 Therapeutic Activities Comments Foam: Tandem stance B 5 x 30 sec Head turns 5 x 30 sec Eyes closed x 5 30 sec single leg stance x 5 B 10 sec feet together 5 x 30 sec Treatment Minutes Timed Code Treatment Minutes 43 Total Treatment Time 43 Billing Units Therapeutic Activity Units 1 Therapeutic Exercise Units 2 Assessment/Impression Assessment/Impression Pt is a 78 year old female who presents with concerns of balance issues. Added YTB to standing exercises today with moderate difficulty with hip strengthening. Cherry struggled today with the standing band exercises on her left LE. Added foam work for balance exercises today with moderate difficulty and one hand held assist on counter needed. The bruising n her face has improved significantly since her fall. She does not have any soreness in her body from the fall, but still does note a bump on her left side of her forehead. Skilled PT intervention is necessary for use of therapeutic exercise, manual therapy, neuromuscular re-education, and therapeutic activity. D/C plan and criteria is for pt to achieve the goals as listed below or until max rehab potential is met. Plan of Care Physical Therapy Goals Within 10-12 weeks: 1.Pt will demonstrate independence in performance of home exercise program with the use of video and/or handouts in order to optimize functional mobility and reduce risk for re-injury. 2.Pt will demonstrate consistent HEP compliance to ensure progress in reaching established goals during course of care. 3.Patient will be able to stand and make dinner in the kitchen without difficulty. 4.Patient will report pain levels <2/10 with all activities in order to improve functional mobility at home, work and during functional leisure activities. 5.Patient will be able to walk up to one mile without difficulty. 6.Patient will be able to bend and lift household items from the floor to shoulder height to perform ADLs without pain. 7.Pt will be able to ascend/ descend 1 flight of stairs in order to perform ADLs pain free. 8.Pt will exhibit 5 pt improvement in [place] Balance measure to demonstrate functional improvement and progress towards goals Daily Plan of Care Continue per POC Recertification Information Initial Certification Date 08/11/23 Recertification Start Date 11/08/23 Recertification Due Date 11/08/23 Reasons to Continue Skilled Therapy Cherry had been progressing nicely with her PT sessions to work on her balance and overall strengthening. She had a fall about 2 weeks ago due to tripping on a box that she had forgotten she had set out. She did go to the ER due to hitting her head but CT came back negative. This has been a set back for Cherry as she took some time off from her exercises. Prior to this, Cherry had noticed some significant improvement with her strength and not feeling like she was going to fall. She would continue to benefit from PT to continue to work on her balance and LE strength. Rehabilitation Potential Good Continued Plan of Care and Interventions Ther ex Ther activities Jasonu Re-ed
== END 2023-12-01 23:59 | disposition home or self-care (01) ==
PROVIDERS: PCP Internal Medicine; Visit Provider Internal Medicine
DX: R26.89 Other abnormalities of gait and mobility (principal); Z51.89 Encounter for other specified aftercare
CPT/HCPCS: 97110; 97161; 97530